=== PATIENT | male | born 1955 | race Caucasian/White ===

== ENCOUNTER → 2019-07-15 09:37 | Outpatient (BNVA) | payer MEDICARE, MEDICAID, SELFPAY | PROVIDERS: Family Provider Nurse Practitioner Family; PCP Nurse Practitioner Family; Visit Provider Specialist | DX: Q78.0 Osteogenesis imperfecta (principal); M48.062 Spinal stenosis, lumbar region with neurogenic claudication | CPT/HCPCS: 62370; 99213 ==

== ENCOUNTER → 2019-08-19 09:02 | Outpatient (BNVA) | payer MEDICARE, MEDICAID, SELFPAY | PROVIDERS: Family Provider Nurse Practitioner Family; Visit Provider Nurse Practitioner | DX: F33.2 Major depressive disorder, recurrent severe without psychotic features (principal); F34.1 Dysthymic disorder; F43.12 Post-traumatic stress disorder, chronic; M48.061 Spinal stenosis, lumbar region without neurogenic claudication; M48.062 Spinal stenosis, lumbar region with neurogenic claudication; R29.90 Unspecified symptoms and signs involving the nervous system; F17.210 Nicotine dependence, cigarettes, uncomplicated | CPT/HCPCS: 62370; 99213 ==

== ENCOUNTER → 2019-09-28 10:08 | Outpatient (BNVA) | payer MEDICARE, MEDICAID, SELFPAY | PROVIDERS: PCP Family Medicine; Visit Provider Specialist | DX: M48.061 Spinal stenosis, lumbar region without neurogenic claudication (principal); Q78.0 Osteogenesis imperfecta; F17.210 Nicotine dependence, cigarettes, uncomplicated | CPT/HCPCS: 62370; 99213 ==

== ENCOUNTER 2019-10-07 09:29 | Outpatient (CLI) | payer MEDICARE, MEDICAID, SELFPAY ==
--- NOTE | 2019-10-07 09:40 | USCV_ITS ---
Chan Dunlap Age: 64 Gender: M : 1955 Exam Date: 10/07/2019 09:53 Ordering Phys: Romeo Bills MD Technologist: Brea Donato Exam Location: [facility] Indication: AI BP: / HR: 50 Rhythm: Sinus Technical Quality: Adequate MEASUREMENTS (Male / Female) Normal Values 2D ECHO LV Diastolic Diameter PLAX 4.4 cm 4.2 - 5.9 / 3.9 - 5.3 cm LV Systolic Diameter PLAX 3.5 cm LV Chamber Size 3.3 cm IVS Diastolic Thickness 1.1 cm 0.6 - 1.0 / 0.6 - 0.9 cm IVS Systolic Thickness 1.5 cm LVPW Diastolic Thickness 1.0 cm 0.6 - 1.0 / 0.6 - 0.9 cm LVPW Systolic Thickness 1.3 cm RV Chamber Size 3.4 cm LVOT Diameter 2.5 cm LV Ejection Fraction 2D Teich 40.6 % LV Ejection Fraction MOD 2C 73.2 % LV Ejection Fraction 2C AL 72.8 % LA Diameter 3.9 cm LA Width 3.3 cm LA Height 4.7 cm RA Width 4.7 cm RA Height 3.8 cm Aorta at Sinotubular Diameter 3.1 cm M-MODE LV Diastolic Diameter MM 4.2 cm 4.2 - 5.9 / 3.9 - 5.3 cm LV Systolic Diameter MM 3.0 cm LV Ejection Fraction MM Teich 56.9 % IVS Diastolic Thickness MM 1.1 cm 0.6 - 1.0 / 0.6 - 0.9 cm IVS Systolic Thickness MM 1.6 cm LVPW Diastolic Thickness MM 1.5 cm 0.6 - 1.0 / 0.6 - 0.9 cm LVPW Systolic Thickness MM 1.9 cm RV Diastolic Diameter MM 1.6 cm Aortic Annulus Diameter 4.6 cm LA Ao Ratio MM 0.8 MV E Point Septal Separation 0.7 cm DOPPLER AV Peak Velocity 186.0 cm/s LVOT Peak Velocity 94.0 cm/s AV Area Cont Eq vti 2.4 cm squared AV Area Cont Eq pk 2.4 cm squared MV Area PHT 2.4 cm squared Mitral E to A Ratio 1.6 MV E' Velocity 10.0 cm/s Mitral E to MV E' Ratio 11.6 Mitral E to LV E' Lateral Ratio 10.9 Mitral E to LV E' Septal Ratio 12.5 TR Peak Velocity 184.8 cm/s TR Peak Gradient 13.7 mmHg TR Mean Velocity 129.9 cm/s TR Mean Gradient 7.6 mmHg TR Velocity Time Integral 48.7 cm TV Peak E Velocity 70.0 cm/s Right Atrial Pressure 3.0 mmHg Pulmonary Artery Systolic Pressu 16.7 mmHg PV Peak Velocity 55.0 cm/s RV Acceleration Time 0.2 s RV Ejection Time 0.4 s RV AcT/ET 0.5 FINDINGS Left Ventricle Normal left ventricular cavity size. Normal left ventricular wall thickness. Normal left ventricular systolic function. Left ventricular ejection fraction is estimated at 70 %. No regional wall motion abnormalities. Normal diastolic function. Right Ventricle Normal right ventricular size and systolic function. Right ventricular systolic pressure 16.7 mmHg. Right Atrium Right atrium not well visualized. Left Atrium Moderately increased left atrial size. Mitral Valve Structurally normal mitral valve. No mitral valve stenosis. No significant mitral valve regurgitation. Aortic Valve Aortic valve not well visualized. No aortic valve stenosis. Moderate to severe aortic valve regurgitation. Tricuspid Valve Tricuspid valve not well visualized. Pulmonic Valve Pulmonic valve not well visualized. Mild pulmonary valve regurgitation. Pericardium No pericardial effusion. Aorta Dilated aortic root measured at 40 mm and ascending aorta measured at 36 mm anteroposteriorly. CONCLUSIONS 1. Normal left ventricular cavity size and systolic function. Left ventricular ejection fraction is estimated at 70 %. No regional wall motion abnormalities. Normal diastolic function. 2. Normal right ventricular size and systolic function. 3. Moderately increased left atrial size. 4. Moderate to severe aortic valve regurgitation. 5. Compared to echocardiogram dated 01/28/2019, there may not have been any significant change. Antonina Paul MD (Electronically Signed) Final Date: 07 October 2019 16:10 S
== END 2019-10-07 09:30 | disposition home or self-care (01) ==
PROVIDERS: Family Provider Family Medicine; PCP Family Medicine; Visit Provider Internal Medicine Cardiovascular Disease
DX: I35.1 Nonrheumatic aortic (valve) insufficiency (principal)
CPT/HCPCS: 93306

== ENCOUNTER → 2019-10-12 08:23 | Outpatient (BNVA) | payer MEDICARE, MEDICAID, SELFPAY | PROVIDERS: Family Provider Family Medicine; PCP Family Medicine; Visit Provider Nurse Practitioner | DX: F33.2 Major depressive disorder, recurrent severe without psychotic features (principal); F34.1 Dysthymic disorder; F43.12 Post-traumatic stress disorder, chronic | CPT/HCPCS: 99213 ==

== ENCOUNTER → 2019-11-04 09:30 | Outpatient (BNVA) | payer MEDICARE, MEDICAID, SELFPAY | PROVIDERS: Family Provider Family Medicine; PCP Family Medicine; Visit Provider Specialist | DX: M48.062 Spinal stenosis, lumbar region with neurogenic claudication (principal); Q78.0 Osteogenesis imperfecta; F33.2 Major depressive disorder, recurrent severe without psychotic features; F17.210 Nicotine dependence, cigarettes, uncomplicated | CPT/HCPCS: 62370; 99213 ==

== ENCOUNTER → 2019-12-09 10:44 | Outpatient (BNVA) | payer MEDICARE, MEDICAID, SELFPAY | PROVIDERS: Family Provider Family Medicine; PCP Family Medicine; Visit Provider Specialist | DX: Q78.0 Osteogenesis imperfecta (principal); M48.062 Spinal stenosis, lumbar region with neurogenic claudication; M79.89 Other specified soft tissue disorders; L03.90 Cellulitis, unspecified | CPT/HCPCS: 62370; 99213 ==

== ENCOUNTER → 2020-01-13 09:40 | Outpatient (BNVA) | payer MEDICARE, MEDICAID, SELFPAY | PROVIDERS: Family Provider Family Medicine; PCP Family Medicine; Visit Provider Specialist | DX: Q78.0 Osteogenesis imperfecta (principal); M48.061 Spinal stenosis, lumbar region without neurogenic claudication; F33.2 Major depressive disorder, recurrent severe without psychotic features; M48.062 Spinal stenosis, lumbar region with neurogenic claudication | CPT/HCPCS: 99213 ==

== ENCOUNTER → 2020-02-17 10:29 | Outpatient (BNVA) | payer MEDICARE, MEDICAID, SELFPAY | PROVIDERS: Family Provider Family Medicine; PCP Family Medicine; Visit Provider Specialist | DX: Q78.0 Osteogenesis imperfecta (principal); M48.062 Spinal stenosis, lumbar region with neurogenic claudication; R29.90 Unspecified symptoms and signs involving the nervous system; F33.2 Major depressive disorder, recurrent severe without psychotic features | CPT/HCPCS: 62370; 99213 ==

== ENCOUNTER → 2020-03-23 09:51 | Outpatient (BNVA) | payer MEDICARE, MEDICAID, SELFPAY | PROVIDERS: Family Provider Family Medicine; PCP Family Medicine; Visit Provider Specialist | DX: M48.062 Spinal stenosis, lumbar region with neurogenic claudication (principal); F34.1 Dysthymic disorder; Q78.0 Osteogenesis imperfecta; F17.210 Nicotine dependence, cigarettes, uncomplicated | CPT/HCPCS: 62370; 99213 ==

== ENCOUNTER → 2020-04-13 11:59 | Outpatient (BNVA) | payer MEDICARE, MEDICAID, SELFPAY | PROVIDERS: Family Provider Family Medicine; PCP Family Medicine; Visit Provider Specialist | DX: M48.062 Spinal stenosis, lumbar region with neurogenic claudication (principal); Q78.0 Osteogenesis imperfecta; Z79.899 Other long term (current) drug therapy; F17.210 Nicotine dependence, cigarettes, uncomplicated | CPT/HCPCS: 62370; 99213 ==

== ENCOUNTER → 2020-05-23 09:36 | Outpatient (BNVA) | payer MEDICARE, MEDICAID, SELFPAY | PROVIDERS: Family Provider Family Medicine; PCP Family Medicine; Visit Provider Specialist | DX: M48.062 Spinal stenosis, lumbar region with neurogenic claudication (principal); Q78.0 Osteogenesis imperfecta | CPT/HCPCS: 62370; 99213 ==

== ENCOUNTER → 2020-06-29 12:18 | Outpatient (BNVA) | payer MEDICARE, MEDICAID, SELFPAY | PROVIDERS: Family Provider Family Medicine; PCP Family Medicine; Visit Provider Specialist | DX: Q78.0 Osteogenesis imperfecta (principal); M46.96 Unspecified inflammatory spondylopathy, lumbar region; F33.2 Major depressive disorder, recurrent severe without psychotic features; M48.062 Spinal stenosis, lumbar region with neurogenic claudication; F17.210 Nicotine dependence, cigarettes, uncomplicated | CPT/HCPCS: 62370; 99213 ==

== ENCOUNTER → 2020-08-03 10:02 | Outpatient (BNVA) | payer MEDICARE, MEDICAID, SELFPAY | PROVIDERS: Family Provider Family Medicine; PCP Family Medicine; Visit Provider Specialist | DX: M48.062 Spinal stenosis, lumbar region with neurogenic claudication (principal); Q78.0 Osteogenesis imperfecta; F43.12 Post-traumatic stress disorder, chronic; F33.2 Major depressive disorder, recurrent severe without psychotic features; F17.210 Nicotine dependence, cigarettes, uncomplicated | CPT/HCPCS: 62370; 99213 ==

== ENCOUNTER → 2020-09-07 10:01 | Outpatient (BNVA) | payer MEDICARE, MEDICAID, SELFPAY | PROVIDERS: Family Provider Family Medicine; PCP Family Medicine; Visit Provider Specialist | DX: M48.062 Spinal stenosis, lumbar region with neurogenic claudication (principal); F17.210 Nicotine dependence, cigarettes, uncomplicated; Z96.89 Presence of other specified functional implants | CPT/HCPCS: 62370; 99213 ==

== ENCOUNTER → 2020-10-25 10:05 | Outpatient (BNVA) | payer MEDICARE, MEDICAID, SELFPAY | PROVIDERS: Family Provider Family Medicine; PCP Family Medicine; Visit Provider Specialist | DX: M48.062 Spinal stenosis, lumbar region with neurogenic claudication (principal); Z96.89 Presence of other specified functional implants; F17.210 Nicotine dependence, cigarettes, uncomplicated | CPT/HCPCS: 62370; 99213 ==

== ENCOUNTER → 2020-12-07 10:59 | Outpatient (BNVA) | payer MEDICARE, MEDICAID, SELFPAY | PROVIDERS: Family Provider Family Medicine; PCP Family Medicine; Visit Provider Specialist | DX: M48.062 Spinal stenosis, lumbar region with neurogenic claudication (principal); M54.6 Pain in thoracic spine; G89.29 Other chronic pain; Q78.0 Osteogenesis imperfecta; Z96.89 Presence of other specified functional implants; F17.210 Nicotine dependence, cigarettes, uncomplicated | CPT/HCPCS: 62370; 99214 ==

== ENCOUNTER 2020-12-18 14:39 | Outpatient (CLI) | payer MEDICARE, MEDICAID, SELFPAY ==
--- NOTE | 2020-12-18 15:30 | CT_ITS ---
WS: [id number] CT LUMBAR SPINE, noncontrast. HISTORY: M54.6 - Pain in thoracic spine TECHNIQUE: Contiguous 2.5 mm axial imaging are performed. Sagittal and coronal reformats are submitte d and reviewed. All CT scans at [facility] use at least one of these dose optimization te chniques: automated exposure control; mA and/or kV adjustment per patient size (includes targeted exa ms where dose is matched to clinical indication); or iterative reconstruction. IV contrast: None DLP: 1463.78 mGycm COMPARISON: MRI lumbar spine 04/24/2006 . Posterior alignment is normal. Severe diffuse osteopenia with loss of the normal trabecular pattern. Mild endplate concavity involving the superior endplates of L1. Concave deformities are mild at L4 an d L5 involving the superior and inferior endplates. There is a more significant biconcave fracture in volving L2 without retropulsion. These fractures are new since 2005. No retropulsion. L1-2: Mild annular disc bulging. No stenosis. L2-3: Very mild annular disc bulging and osteophytic ridging. Mild facet joint arthritis. There is ve ry mild narrowing of the subarticular recess. No significant stenosis. L3-4: Diffuse annular disc bulging with osteophytic ridging. Mild bilateral facet joint arthritis. Mi ld central and subarticular recess narrowing. L4-5: Mild annular disc bulging with moderate facet joint arthritis encroaching into the foramen. Dayron ateral facet joint arthritis and disc disease causing mild central and bilateral subarticular recess narrowing, greatest on the LEFT. L5-S1: Facet joint arthritis without significant stenosis. Dorsal column stimulator wires and electrodes are noted extending into the upper thoracic region. No sacral fracture identified. Partial fusion across the superior LEFT SI joint. CT/CT lumbar spine wo con* [id number] IMPRESSION: 1. Marked osteopenia. 2. Numerous compression fractures in the lumbar spine most significant at L2. Biconcave fracture with severe narrowing of the central vertebral body. No retr opulsion. 3. Additional mild compression fractures at L1, L3 and L4. Fractures are new s dc 2005 MRI. 4. Mild central and bilateral subarticular recess narrowing at L3-4 and L4-5. Most significant encroachment as on the LEFT at L4-5.
--- NOTE | 2020-12-18 15:45 | CT_ITS ---
WS: [id number] CT THORACIC SPINE HISTORY: M48.062 - Spinal stenosis, lumbar region with neurogenic ... TECHNIQUE: Contiguous 2.5 mm axial images are reviewed to thoracic spine. Images are reformatted in s agittal and coronal planes. All CT scans at [facility] use at least one of these dose opt imization techniques: automated exposure control; mA and/or kV adjustment per patient size (includes targeted exams where dose is matched to clinical indication); or iterative reconstruction. DLP: 962.75 mGycm COMPARISON: MRI 06/13/2006 Severe thoracic kyphosis centered at T7. There is diffuse osteopenia. Severe anterior wedging of T7. Additional mild anterior wedging of T6 and T8. No retropulsion of the vertebral bodies. No acute appe aring fracture. No compromise of the central canal. No focal disc protrusions are identified. Lead wi res and electrodes from the dorsal column stimulator are noted terminating near the T10 vertebral bod y. Paraseptal and centrilobular emphysema. Deformity of the ribs in the RIGHT lateral thorax from old he aled fractures. CT/CT thoracic spin wo con* [id number] IMPRESSION: 1. Severe thoracic kyphosis centered at the T7 vertebral body. 2. Vertebral plana T7 compression fracture. Otherwise mild anterior wedging of T6 and T8. 3. No compromise of the central canal.
== END 2020-12-18 14:40 | disposition home or self-care (01) ==
PROVIDERS: PCP Family Medicine; Visit Provider Specialist
DX: M54.6 Pain in thoracic spine (principal); M48.062 Spinal stenosis, lumbar region with neurogenic claudication; G89.29 Other chronic pain; M40.204 Unspecified kyphosis, thoracic region; S22.060A Wedge compression fracture of T7-T8 vertebra, initial encounter for closed fracture; S32.020A Wedge compression fracture of second lumbar vertebra, initial encounter for closed fracture; M85.88 Other specified disorders of bone density and structure, other site; S32.010A Wedge compression fracture of first lumbar vertebra, initial encounter for closed fracture; S32.030A Wedge compression fracture of third lumbar vertebra, initial encounter for closed fracture; S32.040A Wedge compression fracture of fourth lumbar vertebra, initial encounter for closed fracture; X58.XXXA Exposure to other specified factors, initial encounter
CPT/HCPCS: 72128; 72131

== ENCOUNTER → 2021-01-25 10:14 | Outpatient (BNVA) | payer MEDICARE, MEDICAID, SELFPAY | PROVIDERS: PCP Family Medicine; Visit Provider Specialist | DX: Q78.0 Osteogenesis imperfecta (principal); S22.000A Wedge compression fracture of unspecified thoracic vertebra, initial encounter for closed fracture; S32.000A Wedge compression fracture of unspecified lumbar vertebra, initial encounter for closed fracture; G89.29 Other chronic pain; Y93.9 Activity, unspecified; Z96.89 Presence of other specified functional implants; F17.210 Nicotine dependence, cigarettes, uncomplicated | CPT/HCPCS: 62370; 99213; 99214 ==

== ENCOUNTER → 2021-03-15 09:38 | Outpatient (BNVA) | payer MEDICARE, MEDICAID, SELFPAY | PROVIDERS: PCP Family Medicine; Visit Provider Specialist | DX: M54.6 Pain in thoracic spine (principal); G89.29 Other chronic pain; Z96.89 Presence of other specified functional implants; S32.000A Wedge compression fracture of unspecified lumbar vertebra, initial encounter for closed fracture; Y93.9 Activity, unspecified; M48.061 Spinal stenosis, lumbar region without neurogenic claudication; F17.200 Nicotine dependence, unspecified, uncomplicated | CPT/HCPCS: 62370; 99213; 99214 ==

== ENCOUNTER → 2021-05-07 10:03 | Outpatient (BNVA) | payer MEDICARE, MEDICAID, SELFPAY | PROVIDERS: PCP Family Medicine; Visit Provider Specialist | DX: M54.6 Pain in thoracic spine (principal); G89.29 Other chronic pain; M48.061 Spinal stenosis, lumbar region without neurogenic claudication; F33.2 Major depressive disorder, recurrent severe without psychotic features; Z96.89 Presence of other specified functional implants; F17.200 Nicotine dependence, unspecified, uncomplicated | CPT/HCPCS: 62370; 99214 ==

== ENCOUNTER → 2021-05-24 10:01 | Outpatient (BNVA) | payer MEDICARE, MEDICAID, SELFPAY | PROVIDERS: PCP Family Medicine; Visit Provider Specialist | DX: M48.061 Spinal stenosis, lumbar region without neurogenic claudication (principal); Z96.89 Presence of other specified functional implants | CPT/HCPCS: 62367 ==

== ENCOUNTER → 2021-06-14 11:19 | Outpatient (BNVA) | payer MEDICARE, MEDICAID, SELFPAY | PROVIDERS: PCP Family Medicine; Visit Provider Specialist | DX: M48.062 Spinal stenosis, lumbar region with neurogenic claudication (principal) | CPT/HCPCS: 62367 ==

== ENCOUNTER → 2021-06-28 10:59 | Outpatient (BNVA) | payer MEDICARE, MEDICAID, SELFPAY | PROVIDERS: PCP Family Medicine; Visit Provider Specialist | DX: M48.062 Spinal stenosis, lumbar region with neurogenic claudication (principal); Z96.89 Presence of other specified functional implants | CPT/HCPCS: 62367 ==

== ENCOUNTER → 2021-07-13 09:23 | Outpatient (BNVA) | payer MEDICARE, MEDICAID, SELFPAY | PROVIDERS: PCP Family Medicine; Visit Provider Specialist | DX: M48.062 Spinal stenosis, lumbar region with neurogenic claudication (principal); M54.6 Pain in thoracic spine; G89.29 Other chronic pain; Z96.89 Presence of other specified functional implants | CPT/HCPCS: 62370; 99213; 99214 ==

== ENCOUNTER → 2021-09-13 10:54 | Outpatient (BNVA) | payer MEDICARE, MEDICAID, SELFPAY | PROVIDERS: PCP Family Medicine; Visit Provider Specialist | DX: M54.6 Pain in thoracic spine (principal); G89.29 Other chronic pain; M34.9 Systemic sclerosis, unspecified; Z87.891 Personal history of nicotine dependence | CPT/HCPCS: 62367; 99213; 99214 ==

== ENCOUNTER → 2021-09-26 13:31 | Outpatient (BNVA) | payer MEDICARE, MEDICAID, SELFPAY | PROVIDERS: PCP Family Medicine; Visit Provider Specialist | DX: M48.061 Spinal stenosis, lumbar region without neurogenic claudication (principal); F17.210 Nicotine dependence, cigarettes, uncomplicated; Z96.89 Presence of other specified functional implants | CPT/HCPCS: 62370; 99213 ==

== ENCOUNTER → 2021-10-09 13:16 | Outpatient (BNVA) | payer MEDICARE, MEDICAID, SELFPAY | PROVIDERS: PCP Family Medicine; Visit Provider Specialist | DX: Z96.89 Presence of other specified functional implants (principal); Q78.0 Osteogenesis imperfecta; M48.061 Spinal stenosis, lumbar region without neurogenic claudication; S22.000D Wedge compression fracture of unspecified thoracic vertebra, subsequent encounter for fracture with routine healing; F17.210 Nicotine dependence, cigarettes, uncomplicated | CPT/HCPCS: 62368; 99213; 99214 ==

== ENCOUNTER → 2021-10-29 09:24 | Outpatient (BNVA) | payer MEDICARE, MEDICAID, SELFPAY | PROVIDERS: PCP Family Medicine; Visit Provider Specialist | DX: Q78.0 Osteogenesis imperfecta (principal); M48.062 Spinal stenosis, lumbar region with neurogenic claudication; S22.000A Wedge compression fracture of unspecified thoracic vertebra, initial encounter for closed fracture; Z96.89 Presence of other specified functional implants; Z79.891 Long term (current) use of opiate analgesic; F17.210 Nicotine dependence, cigarettes, uncomplicated | CPT/HCPCS: 99214 ==

== ENCOUNTER 2021-10-31 15:02 | Emergency (ER) | payer MEDICARE, MEDICAID, SELFPAY ==
[2021-10-31] VITALS (9 sets, daily range): BP systolic 138–161; BP diastolic 60–86; PULSE 61–78; RESP 14–20; TEMP 37.4–37.6; O2SAT 90–98
--- NOTE | 2021-10-31 15:39 | W.ED.ABDPA2 ---
Documented by User: Osbaldo Banks DO 11/01/21 13:05 HPI - Abdominal Pain General: Chief Complaint: Abdominal Pain Stated Complaint: Unable to keep anything down, was on Morphine Time Seen by Provider: 10/31/21 15:17 Source: patient Mode of arrival: ambulatory Limitations: no limitations History of Present Illness: MD elicited complaint: abdominal pain Onset (ago): day(s) Pain Consistency: constant Severity: severe Quality: cramping Exacerbating factors: nothing Relieving factors: nothing Associated Symptoms: Reports GI cramping, nausea and poor appetite; Denies anorexia, belching, change in bowel habits, change in stool character, chills, coffee ground emesis, constipation, diarrhea, dyspepsia, dysuria, excessive flatus, fever(s), heartburn, hematochezia, hematuria, hematemesis, fecal incontinence, loose stools, melena, syncope and vomiting Review of Systems Const: Reports: body aches, change in appetite, fatigue and malaise; Denies: fever(s) or chills ENMT: Denies: throat pain, ear or mastoid pain, nasal discharge or nasal congestion Card: Denies: chest pain or syncope Resp: Denies: dyspnea, productive cough or non-productive cough GI: Reports: abdominal pain, nausea and GI cramping; Denies: vomiting, hematemesis, coffee ground emesis, heartburn, diarrhea, constipation, belching, excessive flatus, fecal incontinence, change in bowel habits, change in stool character, hematochezia or melena : Denies: dysuria or hematuria Skin/Breast: Denies: rash or pruritus PFSH ED PFSH: Medical History Dysthymic disorder Major depressive disorder, recurrent severe without psychotic features Osteogenesis imperfecta Post-traumatic stress disorder, chronic Surgical History Status post insertion of intrathecal pump Family History Denies family history of Diabetes CAD (coronary artery disease) Cancer Hypertension Stroke Social History Smoking and tobacco status: current every day smoker (1PPD) cigarettes Packs smoked per day: 1 Smoking risk assessment/counseling performed?: Yes Tobacco counseling given: counseling >3 minutes Alcohol intake: current Alcohol intake frequency: holidays/special occasions only History of recent travel: No Physical Exam Const: COMMON NORMALS: no acute distress GENERAL APPEARANCE: cooperative and comfortable ORIENTATION/CONSCIOUSNESS: Yes awake, Yes oriented to person, Yes oriented to place and Yes oriented to time HENMT: COMMON NORMALS: normocephalic, atraumatic and hearing grossly normal bilaterally HEAD & SCALP: normocephalic and atraumatic Neck/C-Spine: COMMON NORMALS: no JVD Resp: COMMON NORMALS: normal respiratory effort, No retractions, No use of accessory muscles and clear to auscultation bilaterally AUSCULTATION: clear to auscultation bilaterally Cardio: COMMON NORMALS: no JVD, regular rate, regular rhythm and No murmurs present (Cardio) RATE: regular rate RHYTHM: regular rhythm GI: COMMON NORMALS: No hepatosplenomegaly present AUSCULTATION: Yes normoactive bowel sounds PALPATION: Yes Tenderness to palpation present (GI) (Epigastric), No Guarding due to palpation present (GI) and Yes No hepatosplenomegaly present Extremity: COMMON NORMALS: normal to inspection, capillary refill normal, no clubbing, cyanosis or edema, no calf tenderness and no pedal edema Neuro: SENSORIUM/ORIENTATION: Yes oriented to person, Yes oriented to place and Yes oriented to time Skin: COMMON NORMALS: no rashes or lesions noted GENERAL SKIN EXAM: no rashes or lesions noted Course Vital Signs: Vital signs: Vital Signs Temperature 99.3 F 10/31/21 21:13 Pulse Rate 71 10/31/21 21:13 Respiratory Rate 18 10/31/21 21:13 Blood Pressure 161/61 10/31/21 21:13 Pulse Oximetry 91 10/31/21 21:13 MDM - Abdominal Pain Medical Decision Making Care signed out to Dr. Sawyer at change of shift. See final notes for diagnosis and disposition. Patient presents here with chronic pain he had had abdominal and chest pain while he is here his blood work including cardiac enzymes and CT abdomen are normal I spoke to his physician Dr. Mathis as well he stable for discharge he is to take his hydrocodone at home we will prescribe him Zofran as well he is to follow-up with her in 2 to 4 days and return if worsening he understands and agrees to plan. Lab Data : 10/31/21 16:50 10/31/21 16:50 Labs/Radiology: Radiology Impressions Abdomen/Pelvis CT 10/31/21 17:03 IMPRESSION: 1. Negative for focal acute inflammatory process in the abdomen or pelvis. 2. Bibasilar atelectasis versus minimal infiltrate. 3. Emphysematous changes. 4. Subcentimeter hepatic cysts. 5. Right kidney cyst, negative for follow-up advised. 6. Spinal stimulator. 7. Constipation. 8. Diverticulosis without diverticulitis. 9. Minimal cholelithiasis. 10. Several chronic compression fractures without retropulsion of bony fragments in the spine. 11. Chronic right pelvic fractures. Chest X-Ray 10/31/21 19:07 IMPRESSION: Low lung volumes with mild pulmonary vascular congestion but no overt edema or consolidation. Laboratory Results WBC 8.3 10^3/uL (4.0-10.0) 10/31/21 16:50 RBC 4.54 10^6/uL (4.1-5.3) 10/31/21 16:50 Hgb 14.2 g/dL (11.7-16.6) 10/31/21 16:50 Hct 43.3 % (42.0-52.0) 10/31/21 16:50 MCV 95.4 fl (80-94) H 10/31/21 16:50 MCH 31.3 pg (28.0-34.0) 10/31/21 16:50 MCHC 32.8 g/dL (30.0-36.0) 10/31/21 16:50 RDW 14.1 % (12.1-15.1) 10/31/21 16:50 Plt Count 197 10^3/cmm (130-400) 10/31/21 16:50 MPV 9.8 fL (7.4-10.4) 10/31/21 16:50 Neut % (Auto) 79.6 % 10/31/21 16:50 Lymph % (Auto) 15.0 % 10/31/21 16:50 Wilkin % (Auto) 3.7 % 10/31/21 16:50 Eos % (Auto) 0.1 % 10/31/21 16:50 Baso % (Auto) 1.2 % 10/31/21 16:50 Neut # (Auto) 6.63 10^3/uL (1.8-7.7) 10/31/21 16:50 Lymph # (Auto) 1.3 10^3/uL (0.8-4.8) 10/31/21 16:50 Wilkin # (Auto) 0.3 10^3/uL (0.2-0.9) 10/31/21 16:50 Eos # (Auto) 0.0 10^3/uL (0.0-0.8) 10/31/21 16:50 Baso # (Auto) 0.1 10^3/uL (0.0-0.1) 10/31/21 16:50 Nucleated RBC % (auto) 0 % 10/31/21 16:50 Nucleated RBCs # 0.0 /100WBC 10/31/21 16:50 Sodium 145 mmol/L (136-145) 10/31/21 16:50 Potassium 3.8 mmol/L (3.5-5.1) 10/31/21 16:50 Chloride 106 mmol/L (98-107) 10/31/21 16:50 Carbon Dioxide 26 mmol/L (22-29) 10/31/21 16:50 Anion Gap 16.8 (5-19) 10/31/21 16:50 BUN 9 mg/dL (8-23) 10/31/21 16:50 Creatinine 0.8 mg/dL (0.7-1.2) 10/31/21 16:50 GFR Calculation 97.0 mL/min (90-130) 10/31/21 16:50 Glucose 120 mg/dL (65-115) H 10/31/21 16:50 Calculated Osmolality 300 mOsm/kg (285-295) H 10/31/21 16:50 Lactic Acid 1.3 mmol/L (0.5-2.2) 10/31/21 16:55 Calcium 9.6 mg/dL (8.5-10.5) 10/31/21 16:50 Total Bilirubin 0.4 mg/dL (0.15-1.2) 10/31/21 16:50 AST 18 U/L (0-40) 10/31/21 16:50 ALT 13 U/L (0-41) 10/31/21 16:50 Alkaline Phosphatase 61 IU/L (40-130) 10/31/21 16:50 Troponin T Baseline 15 ng/L (0-15) 10/31/21 16:50 Troponin T 120 Minute 16.56 ng/L (0-15) H 10/31/21 19:24 Delta Troponin T 1.56 ABS# (0-10) 10/31/21 19:24 Total Protein 7.7 g/dL (6.6-8.7) 10/31/21 16:50 Albumin 4.5 g/dL (3.5-5.2) 10/31/21 16:50 Globulin 3.2 g/dL (1.3-4.6) 10/31/21 16:50 Lipase 30 U/L (13-60) 10/31/21 16:50 Discharge Plan Discharge Patient Disposition: Home Clinical Impression: Abdominal pain Condition: Stable Prescriptions: New ondansetron 4 mg tablet,disintegrating 4 mg PO Q6H PRN (Reason: nausea and vomiting) Qty: 14 0RF No Action Cumin 1 tab as directed DAILY 0RF multivitamin Tablet 1 tab PO QAM 0RF Senna Plus 8.6-50 mg capsule 3 tab-cap PO BID 0RF calcium carbonate [Calcium 600] 600 mg calcium (1,500 mg) tablet 600 mg PO DAILY 0RF ferrous sulfate [FeroSul] 325 mg (65 mg iron) tablet 325 mg PO DAILY 0RF magnesium 200 mg tablet 200 mg PO DAILY 0RF saw palmetto 500 mg capsule 500 mg PO DAILY 0RF bupropion HCl [Wellbutrin XL] 300 mg tablet extended release 24 hr 300 mg PO QAM Qty: 30 1RF albuterol sulfate [Ventolin HFA] 90 mcg/actuation HFA aerosol inhaler 1 inh inhalation Q4H PRN (Reason: shortness of breath or wheezing) Qty: 6.7 5RF baclofen 10 mg tablet 10 mg PO QID Qty: 360 3RF pregabalin [Lyrica] 50 mg capsule 50 mg PO TID Qty: 90 5RF alendronate 70 mg tablet See Rx Instructions .ROUTE .COMPLEX Qty: 4 3RF Dose Instruction: take one tablet by mouth weekly. Rx Instructions: take one tablet by mouth weekly on Mondays albuterol sulfate 2.5 mg /3 mL (0.083 %) Solution For Nebulization 2.5 mg INHALATION Q6H PRN (Reason: Shortness Of Breath) 0RF hydroxyzine HCl 50 mg tablet 50 mg PO BEDTIME 0RF hydrocodone-acetaminophen 10-325 mg tablet 1 tab PO Q6H PRN (Reason: Pain) 0RF Rx Instructions: Do not fill until 12/27/2021 Discharge Orders: Discharge ED (Routine); Ordered 10/31/21 Ordered By: Jcarlos Sawyer Referrals: Radha Bright MD [Primary Care Provider] - Discharge Diet: Advance as tolerated Discharge Activity: Resume usual activity Patient Instructions: Abdominal Pain (ED) Coding Level of Care Code ED Fixer Supervisor for Chg Fwd Documented by User: Jcarlos Sawyer MD 10/31/21 21:28 HPI - Abdominal Pain General: Chief Complaint: Abdominal Pain Stated Complaint: Unable to keep anything down, was on Morphine Time Seen by Provider: 10/31/21 15:17 History of Present Illness: . [facility] ED PFSH: Medical History Dysthymic disorder Major depressive disorder, recurrent severe without psychotic features Osteogenesis imperfecta Post-traumatic stress disorder, chronic Surgical History Status post insertion of intrathecal pump Family History Denies family history of Diabetes CAD (coronary artery disease) Cancer Hypertension Stroke Social History Smoking and tobacco status: current every day smoker (1PPD) cigarettes Packs smoked per day: 1 Smoking risk assessment/counseling performed?: Yes Tobacco counseling given: counseling >3 minutes Alcohol intake: current Alcohol intake frequency: holidays/special occasions only History of recent travel: No Course Vital Signs: Vital signs: Vital Signs Temperature 99.3 F 10/31/21 21:13 Pulse Rate 71 10/31/21 21:13 Respiratory Rate 18 10/31/21 21:13 Blood Pressure 161/61 10/31/21 21:13 Pulse Oximetry 91 10/31/21 21:13 MDM - Abdominal Pain Medical Decision Making Patient presents here with chronic pain he had had abdominal and chest pain while he is here his blood work including cardiac enzymes and CT abdomen are normal I spoke to his physician Dr. Mathis as well he stable for discharge he is to take his hydrocodone at home we will prescribe him Zofran as well he is to follow-up with her in 2 to 4 days and return if worsening he understands and agrees to plan. Lab Data : 10/31/21 16:50 10/31/21 16:50 Labs/Radiology: Radiology Impressions Abdomen/Pelvis CT 10/31/21 17:03 IMPRESSION: 1. Negative for focal acute inflammatory process in the abdomen or pelvis. 2. Bibasilar atelectasis versus minimal infiltrate. 3. Emphysematous changes. 4. Subcentimeter hepatic cysts. 5. Right kidney cyst, negative for follow-up advised. 6. Spinal stimulator. 7. Constipation. 8. Diverticulosis without diverticulitis. 9. Minimal cholelithiasis. 10. Several chronic compression fractures without retropulsion of bony fragments in the spine. 11. Chronic right pelvic fractures. Chest X-Ray 10/31/21 19:07 IMPRESSION: Low lung volumes with mild pulmonary vascular congestion but no overt edema or consolidation. Laboratory Results WBC 8.3 10^3/uL (4.0-10.0) 10/31/21 16:50 RBC 4.54 10^6/uL (4.1-5.3) 10/31/21 16:50 Hgb 14.2 g/dL (11.7-16.6) 10/31/21 16:50 Hct 43.3 % (42.0-52.0) 10/31/21 16:50 MCV 95.4 fl (80-94) H 10/31/21 16:50 MCH 31.3 pg (28.0-34.0) 10/31/21 16:50 MCHC 32.8 g/dL (30.0-36.0) 10/31/21 16:50 RDW 14.1 % (12.1-15.1) 10/31/21 16:50 Plt Count 197 10^3/cmm (130-400) 10/31/21 16:50 MPV 9.8 fL (7.4-10.4) 10/31/21 16:50 Neut % (Auto) 79.6 % 10/31/21 16:50 Lymph % (Auto) 15.0 % 10/31/21 16:50 Wilkin % (Auto) 3.7 % 10/31/21 16:50 Eos % (Auto) 0.1 % 10/31/21 16:50 Baso % (Auto) 1.2 % 10/31/21 16:50 Neut # (Auto) 6.63 10^3/uL (1.8-7.7) 10/31/21 16:50 Lymph # (Auto) 1.3 10^3/uL (0.8-4.8) 10/31/21 16:50 Wilkin # (Auto) 0.3 10^3/uL (0.2-0.9) 10/31/21 16:50 Eos # (Auto) 0.0 10^3/uL (0.0-0.8) 10/31/21 16:50 Baso # (Auto) 0.1 10^3/uL (0.0-0.1) 10/31/21 16:50 Nucleated RBC % (auto) 0 % 10/31/21 16:50 Nucleated RBCs # 0.0 /100WBC 10/31/21 16:50 Sodium 145 mmol/L (136-145) 10/31/21 16:50 Potassium 3.8 mmol/L (3.5-5.1) 10/31/21 16:50 Chloride 106 mmol/L (98-107) 10/31/21 16:50 Carbon Dioxide 26 mmol/L (22-29) 10/31/21 16:50 Anion Gap 16.8 (5-19) 10/31/21 16:50 BUN 9 mg/dL (8-23) 10/31/21 16:50 Creatinine 0.8 mg/dL (0.7-1.2) 10/31/21 16:50 GFR Calculation 97.0 mL/min (90-130) 10/31/21 16:50 Glucose 120 mg/dL (65-115) H 10/31/21 16:50 Calculated Osmolality 300 mOsm/kg (285-295) H 10/31/21 16:50 Lactic Acid 1.3 mmol/L (0.5-2.2) 10/31/21 16:55 Calcium 9.6 mg/dL (8.5-10.5) 10/31/21 16:50 Total Bilirubin 0.4 mg/dL (0.15-1.2) 10/31/21 16:50 AST 18 U/L (0-40) 10/31/21 16:50 ALT 13 U/L (0-41) 10/31/21 16:50 Alkaline Phosphatase 61 IU/L (40-130) 10/31/21 16:50 Troponin T Baseline 15 ng/L (0-15) 10/31/21 16:50 Troponin T 120 Minute 16.56 ng/L (0-15) H 10/31/21 19:24 Delta Troponin T 1.56 ABS# (0-10) 10/31/21 19:24 Total Protein 7.7 g/dL (6.6-8.7) 10/31/21 16:50 Albumin 4.5 g/dL (3.5-5.2) 10/31/21 16:50 Globulin 3.2 g/dL (1.3-4.6) 10/31/21 16:50 Lipase 30 U/L (13-60) 10/31/21 16:50 EKG Data EKG 1: I personally reviewed and interpreted this EKG as follows: EKG interpretation date: 10/31/21 EKG interpretation time: 19:01 Interpretation: nsr hr [address] or t wave abnormalities qrs 100 qtc 420 Discharge Plan Discharge Patient Disposition: Home Clinical Impression: Abdominal pain Condition: Stable Prescriptions: New ondansetron 4 mg tablet,disintegrating 4 mg PO Q6H PRN (Reason: nausea and vomiting) Qty: 14 0RF No Action Cumin 1 tab as directed DAILY 0RF multivitamin Tablet 1 tab PO QAM 0RF Senna Plus 8.6-50 mg capsule 3 tab-cap PO BID 0RF calcium carbonate [Calcium 600] 600 mg calcium (1,500 mg) tablet 600 mg PO DAILY 0RF ferrous sulfate [FeroSul] 325 mg (65 mg iron) tablet 325 mg PO DAILY 0RF magnesium 200 mg tablet 200 mg PO DAILY 0RF saw palmetto 500 mg capsule 500 mg PO DAILY 0RF bupropion HCl [Wellbutrin XL] 300 mg tablet extended release 24 hr 300 mg PO QAM Qty: 30 1RF albuterol sulfate [Ventolin HFA] 90 mcg/actuation HFA aerosol inhaler 1 inh inhalation Q4H PRN (Reason: shortness of breath or wheezing) Qty: 6.7 5RF baclofen 10 mg tablet 10 mg PO QID Qty: 360 3RF pregabalin [Lyrica] 50 mg capsule 50 mg PO TID Qty: 90 5RF alendronate 70 mg tablet See Rx Instructions .ROUTE .COMPLEX Qty: 4 3RF Dose Instruction: take one tablet by mouth weekly. Rx Instructions: take one tablet by mouth weekly on Mondays albuterol sulfate 2.5 mg /3 mL (0.083 %) Solution For Nebulization 2.5 mg INHALATION Q6H PRN (Reason: Shortness Of Breath) 0RF hydroxyzine HCl 50 mg tablet 50 mg PO BEDTIME 0RF hydrocodone-acetaminophen 10-325 mg tablet 1 tab PO Q6H PRN (Reason: Pain) 0RF Rx Instructions: Do not fill until 12/27/2021 Discharge Orders: Discharge ED (Routine); Ordered 10/31/21 Ordered By: Jcarlos Sawyer Referrals: Radha Bright MD [Primary Care Provider] - Discharge Diet: Advance as tolerated Discharge Activity: Resume usual activity Patient Instructions: Abdominal Pain (ED) Coding Level of Care Code ED Fixer Supervisor for Miguel Grier
--- NOTE | 2021-10-31 17:03 | CTR_ITS ---
PROCEDURE INFORMATION: Exam: CT Abdomen And Pelvis With Contrast Exam date and time: 10/31/2021 6:05 PM Age: 66 years old Clinical indication: Abdominal pain; Additional info: Abd pain on the right side, unable to keep any food down x 2 days TECHNIQUE: Imaging protocol: Computed tomography of the abdomen and pelvis with contrast. Radiation optimization: All CT scans at this facility use at least one of these dose optimization techniques: automated exposure control; mA and/or kV adjustment per patient size (includes targeted exams where dose is matched to clinical indication); or iterative reconstruction. Contrast material: OMNIPAQUE 350; Contrast volume: 95 ml; Contrast route: INTRAVENOUS (IV); COMPARISON: CT pelvis wo con [id number] 11/13/2015 9:48 AM RADIATION DOSE METRICS: Total DLP (mGy-cm): 1464.52 FINDINGS: Tubes, catheters and devices: Spinal stimulator. Lungs: Bibasilar atelectasis versus minimal infiltrate. Emphysematous changes. Liver: Subcentimeter hepatic cysts. Gallbladder and bile ducts: Minimal cholelithiasis. Pancreas: Normal. No ductal dilation. Spleen: Normal. No splenomegaly. Adrenal glands: Normal. No mass. Kidneys and ureters: Right kidney cyst, negative for follow-up advised. Stomach and bowel: Constipation. Diverticulosis without diverticulitis. Appendix: No evidence of appendicitis. Intraperitoneal space: Unremarkable. No free air. No significant fluid collection. Arteries: Unremarkable. No abdominal aortic aneurysm. Lymph nodes: Unremarkable. No enlarged lymph nodes. Urinary bladder: Unremarkable as visualized. Reproductive: Unremarkable as visualized. Bones/joints: Several chronic compression fractures without retropulsion of bony fragments in the spine. Chronic right pelvic fractures. Soft tissues: Unremarkable. CT/CT abdomen pelvis w con* [id number] IMPRESSION: 1. Negative for focal acute inflammatory process in the abdomen or pelvis. 2. Bibasilar atelectasis versus minimal infiltrate. 3. Emphysematous changes. 4. Subcentimeter hepatic cysts. 5. Right kidney cyst, negative for follow-up advised. 6. Spinal stimulator. 7. Constipation. 8. Diverticulosis without diverticulitis. 9. Minimal cholelithiasis. 10. Several chronic compression fractures without retropulsion of bony fragments in the spine. 11. Chronic right pelvic fractures.
[2021-10-31 17:05] LABS: Basophils # 0.1 10^3/uL (0.0-0.1); Basophils % 1.2 %; Eosinophils % 0.1 %; Hematocrit 43.3 % (42.0-52.0); Hemoglobin 14.2 g/dL (11.7-16.6); Lymphocytes # 1.3 10^3/uL (0.8-4.8); Mean Corpuscular HGB Conc 32.8 g/dL (30.0-36.0); Mean Corpuscular Hemoglobin 31.3 pg (28.0-34.0); Mean Corpuscular Volume 95.4 fl (80-94); Mean Platelet Volume 9.8 fL (7.4-10.4); Monocytes # 0.3 10^3/uL (0.2-0.9); Monocytes % 3.7 %; Neutrophils # 6.63 10^3/uL (1.8-7.7); Neutrophils % 79.6 %; Nucleated Red Blood Cells % 0 %; Platelet Count 197 10^3/cmm (130-400); Red Blood Count 4.54 10^6/uL (4.1-5.3); Red Cell Distribution Width 14.1 % (12.1-15.1); White Blood Count 8.3 10^3/uL (4.0-10.0)
[2021-10-31] MEDS: morphine 4 mg/mL SDV 1 mL IVP ×2 (17:19→20:55)
[2021-10-31] MEDS: lactated ringers 1,000 ML 999 ML IV (17:19)
[2021-10-31] MEDS: ondansetron 2 mg/ML SDV 2 mL 4 MG IVP (17:20)
[2021-10-31 17:22] LABS: Lactic Sepsis W/Reflex 1.3 mmol/L (0.5-2.2)
[2021-10-31 17:23] LABS: Alanine Aminotransferase 13 U/L (0-41); Albumin Level 4.5 g/dL (3.5-5.2); Alkaline Phosphatase 61 IU/L (40-130); Anion Gap 16.8 (5-19); Aspartate Amino Transferase 18 U/L (0-40); Blood Urea Nitrogen 9 mg/dL (8-23); Calcium 9.6 mg/dL (8.5-10.5); Carbon Dioxide 26 mmol/L (22-29); Chloride 106 mmol/L (98-107); Globulin 3.2 g/dL (1.3-4.6); Glucose 120 mg/dL (65-115); Lipase 30 U/L (13-60); Osmolality Calculated 300 mOsm/kg (285-295); Potassium 3.8 mmol/L (3.5-5.1); Sodium 145 mmol/L (136-145); Total Bilirubin 0.4 mg/dL (0.15-1.2); Total Protein 7.7 g/dL (6.6-8.7)
[2021-10-31] MEDS: iohexol 350 mg/mL 100 mL Btl IV (18:07)
[2021-10-31] MEDS: HYDROmorphone 1 mg/mL INJ 1 mL IVP (18:17)
[2021-10-31] MEDS: ondansetron 4 MG Tablet PO (18:41)
--- NOTE | 2021-10-31 18:58 | ECG_ITS ---
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 Measurements Intervals [place] Rate: 61 P: 39 CA: 124 QRS: 51 QRSD: 100 T: 53 QT: 416 QTc: 422 Interpretive Statements SINUS RHYTHM WITH SINUS ARRHYTHMIA Compared to ECG 11/07/2018 06:11:20 Myocardial infarct finding no longer present Electronically Signed On 11-01-2021 17:00:25 CDT by Bill Barton M.D. [email or web address]/[id number]
--- NOTE | 2021-10-31 19:07 | XRR_ITS ---
PROCEDURE INFORMATION: Exam: XR Chest Exam date and time: 10/31/2021 7:27 PM Age: 66 years old Clinical indication: Pain; Angina pectoris; Additional info: Cp TECHNIQUE: Imaging protocol: XR of the chest. Views: 1 view. COMPARISON: CR Chest 1 [place] [id number] 11/07/2018 1:26 AM FINDINGS: Lungs: Low lung volumes with pleuroparenchymal scarring. Pulmonary vascular congestion without overt edema. No consolidation. Pleural spaces: Unremarkable. No pleural effusion. No pneumothorax. Heart/Mediastinum: Cardiac silhouette upper normal. Bones/joints: Old right rib fractures. Old proximal right humerus fracture with plate and screws. XR/XR chest 1V portable [id number] IMPRESSION: Low lung volumes with mild pulmonary vascular congestion but no overt edema or consolidation.
[2021-10-31 19:32] LABS: Troponin(5th) Baseline 15 ng/L (0-15)
[2021-10-31 19:50] LABS: Troponin 5 2HR 16.56 ng/L (0-15)
[2021-10-31 19:52] LABS: Troponin 5 2HR Delta 1.56 ABS# (0-10)
[2021-10-31] MEDS: lidocaine 2% viscous 15 ML, aluminum-mag hydrox-simethicon 30 ML, sucralfate oral liq 1 GM PO (20:04)
== END 2021-10-31 21:20 | disposition home or self-care (01) ==
PROVIDERS: Emergency Medicine; Family Medicine; Emergency Provider Emergency Medicine; PCP Family Medicine
DX: F11.23 Opioid dependence with withdrawal (principal); R10.9 Unspecified abdominal pain; Z96.89 Presence of other specified functional implants; F17.210 Nicotine dependence, cigarettes, uncomplicated; G89.29 Other chronic pain; Z79.891 Long term (current) use of opiate analgesic
CPT/HCPCS: 36415; 71045; 74177; 80053; 83605; 83690; 84484; 85025; 93005; 96361; 96374; 96375; 96376; 99215; 99284; J1170; J2270; J2405; Q0162; Q9967

== ENCOUNTER 2021-11-04 21:39 | Emergency (ER) | payer MEDICARE, MEDICAID, SELFPAY ==
[2021-11-04 22:30] VITALS: BP 143/62; PULSE 90; RESP 14; TEMP 37.1; O2SAT 97; BMI 26.5
--- NOTE | 2021-11-04 23:08 | W.ED.GENADLT ---
HPI - General Adult General: Chief complaint: General Medical Stated complaint: BACK PAIN Time Seen by Provider: 11/04/21 22:54 History of Present Illness: Patient is a 66-year-old male comes to the ED with worsening chronic pain. Past medical history of osteogenesis imperfecta. He says he is having episodes of increased pain all over. He was seen here in the ED for similar complaint back on October 31 and he was cleared for discharge home. patient has a morphine pump and he thinks that it is not working right. Patient saw Dr. Mathis back on October 31 and she turned off pain pump due to it being at the end of its service and battery depleted. Dr. Mathis is currently in the process of getting patient set up with a surgeon to have pain pump removed. Dr. Mathis has pt on oral prescription of hydrocodone's for pain and he says they are not helping. Denies any other symptoms. Associated symptoms: Deny chest pain, dyspnea, headache(s), nausea, rash, palpitations or vomiting Review of Systems Narrative: Generalized pain all over. Const: Denies: fever(s), chills or fatigue Eyes: Denies: change in vision or eye discomfort ENMT: Denies: throat pain, odynophagia, nasal discharge or nasal congestion Card: Denies: chest pain, palpitations, edema, swelling of feet/ankles, dyspnea on exertion or orthopnea Resp: Denies: dyspnea, productive cough or non-productive cough GI: Denies: abdominal pain, nausea, vomiting, diarrhea, constipation or hematochezia : Denies: flank pain, difficulty urinating, dysuria or hematuria Musc: Denies: neck pain, back pain or extremity swelling Skin/Breast: Denies: rash or new lesions Neuro: Denies: headache(s), numbness in extremities or weakness in extremities PFSH ED PFSH: Medical History Dysthymic disorder Major depressive disorder, recurrent severe without psychotic features Osteogenesis imperfecta Post-traumatic stress disorder, chronic Surgical History Status post insertion of intrathecal pump Family History Denies family history of Diabetes CAD (coronary artery disease) Cancer Hypertension Stroke Social History Smoking and tobacco status: current every day smoker (1PPD) cigarettes Packs smoked per day: 1 Smoking risk assessment/counseling performed?: Yes Tobacco counseling given: counseling >3 minutes Alcohol intake: current Alcohol intake frequency: holidays/special occasions only History of recent travel: No Physical Exam Const: COMMON NORMALS: no acute distress, patient oriented x3 and alert GENERAL APPEARANCE: cooperative HENMT: COMMON NORMALS: normocephalic HEAD & SCALP: normocephalic MOUTH: Normal oral and palatal mucosa present THROAT: posterior oropharynx normal and uvula midline Eye: COMMON NORMALS: Equal, round and reactive pupils present and conjunctivae normal CONJUNCTIVA: Yes conjunctivae normal PUPIL: Yes Equal, round and reactive pupils present Neck/C-Spine: COMMON NORMALS: supple GENERAL: Yes normal visual inspection Resp: COMMON NORMALS: normal respiratory effort, No retractions, No use of accessory muscles and clear to auscultation bilaterally AUSCULTATION: clear to auscultation bilaterally Cardio: COMMON NORMALS: regular rate, regular rhythm, S1 normal heart sound present, S2 normal heart sound present, No gallops present (Cardio), No clicks present (Cardio), No murmurs present (Cardio) and Peripheral pulses 2+ throughout RATE: regular rate RHYTHM: regular rhythm HEART SOUNDS: S1 normal heart sound present and S2 normal heart sound present PERIPHERAL PULSES: Peripheral pulses 2+ throughout GI: COMMON NORMALS: Normal to inspection, nondistended, normoactive bowel sounds present, Soft to palpation, non-tender and no masses PALPATION: Yes Soft to palpation : COMMON NORMALS: Yes no CVA tenderness BLADDER/KIDNEY EXAM: Yes no CVA tenderness Back/Pelvis: COMMON NORMALS: no CVA tenderness Extremity: COMMON NORMALS: normal to inspection Neuro: COMMON NORMALS: patient oriented x3 and moves all extremities SENSORIUM/ORIENTATION: Yes alert Skin: GENERAL SKIN EXAM: dry skin Course Vital Signs: Vital signs: Vital Signs Temperature 98.7 F 11/04/21 22:30 Pulse Rate 90 11/04/21 22:30 Respiratory Rate 18 11/04/21 23:44 Blood Pressure 143/62 11/04/21 22:30 Pulse Oximetry 97 11/04/21 22:30 [facility] - General Adult Medical Decision Making Patient is a 66-year-old male comes to the ED with generalized pain all over. Patient has a history of osteogenesis imperfecta and has morphine pain pump. He just had morphine pump deactivated back on October 31. Dr. Mathis is currently setting patient up with a surgeon who can have pain pump removed. He currently has hydrocodone 10 mg tablets at home to take for pain now since pain pump is stopped. Denies any other symptoms. Vitals are stable and patient appears nontoxic in no acute distress. Rest of exam is benign. Patient was just a little confused on what all was done with his morphine pump by Dr. Mathis on October 31 and that was part of his reason for coming here to the ED tonight. I reviewed Dr. Mathis's note on October 31 and informed patient that his morphine pump was deactivated and he has the p.o. hydrocodone now for pain. Patient understood and I told him to contact Dr. Mathis tomorrow to find out when pain pump will get removed. He was given p.o. pain med dose here in the ED and then was discharged home. Return ED precautions given. Patient understood and agreed with plan. Discharge Plan Discharge Patient Disposition: Home Clinical Impression: Pain Condition: Stable Prescriptions: No Action Cumin 1 tab as directed DAILY 0RF multivitamin Tablet 1 tab PO QAM 0RF Senna Plus 8.6-50 mg capsule 3 tab-cap PO BID 0RF calcium carbonate [Calcium 600] 600 mg calcium (1,500 mg) tablet 600 mg PO DAILY 0RF ferrous sulfate [FeroSul] 325 mg (65 mg iron) tablet 325 mg PO DAILY 0RF magnesium 200 mg tablet 200 mg PO DAILY 0RF saw palmetto 500 mg capsule 500 mg PO DAILY 0RF bupropion HCl [Wellbutrin XL] 300 mg tablet extended release 24 hr 300 mg PO QAM Qty: 30 1RF albuterol sulfate [Ventolin HFA] 90 mcg/actuation HFA aerosol inhaler 1 inh inhalation Q4H PRN (Reason: shortness of breath or wheezing) Qty: 6.7 5RF baclofen 10 mg tablet 10 mg PO QID Qty: 360 3RF pregabalin [Lyrica] 50 mg capsule 50 mg PO TID Qty: 90 5RF alendronate 70 mg tablet See Rx Instructions .ROUTE .COMPLEX Qty: 4 3RF Dose Instruction: take one tablet by mouth weekly. Rx Instructions: take one tablet by mouth weekly on Mondays albuterol sulfate 2.5 mg /3 mL (0.083 %) Solution For Nebulization 2.5 mg INHALATION Q6H PRN (Reason: Shortness Of Breath) 0RF hydroxyzine HCl 50 mg tablet 50 mg PO BEDTIME 0RF hydrocodone-acetaminophen 10-325 mg tablet 1 tab PO Q6H PRN (Reason: Pain) 0RF Rx Instructions: Do not fill until 12/27/2021 ondansetron 4 mg tablet,disintegrating 4 mg PO Q6H PRN (Reason: nausea and vomiting) Qty: 14 0RF Discharge Orders: Discharge ED (Routine); Ordered 11/04/21 Ordered By: Jeremie Seo Referrals: Radha Bright MD [Primary Care Provider] - Discharge Diet: Regular Discharge Activity: Increase activity as tolerated Patient Instructions: Opioid Safety Activity Restrictions/Additional Instructions: Contact Dr. Mathis tomorrow to discuss plan with morphine pump. Continue taking your previously prescribed oral pain meds. Return to the ER or your medical provider if condition worsens. Please read and understand discharge instructions. Thank you for choosing [facility] for your healthcare needs today. Please realize this is an emergency room and that we are providing you with a medical screening exam and this may not be complete and all inclusive of all the testing and or work up that you may need to determine your ailment or severity of your illness. It is very important that you follow up as instructed or that you return to the Emergency Department should you have concerns or if your condition changes or worsens in any way. Coding Level of Care Code ED It Help Desk Associate for Miguel Grier Exam Comprehensive
[2021-11-04 23:44] VITALS: RESP 18
[2021-11-04] MEDS: oxyCODONE-APAP 10-325 mg Tablet 1 TAB PO (23:44)
== END 2021-11-05 00:10 | disposition home or self-care (01) ==
PROVIDERS: Emergency Provider Physician Assistant; PCP Family Medicine
DX: R52 Pain, unspecified (principal); Q78.0 Osteogenesis imperfecta; F17.210 Nicotine dependence, cigarettes, uncomplicated
CPT/HCPCS: 99281

== ENCOUNTER → 2021-11-05 11:46 | Outpatient (BNVA) | payer MEDICARE, MEDICAID, SELFPAY | PROVIDERS: PCP Family Medicine; Visit Provider Specialist | DX: F11.23 Opioid dependence with withdrawal (principal); Z96.89 Presence of other specified functional implants; M54.6 Pain in thoracic spine; G89.29 Other chronic pain; Q78.0 Osteogenesis imperfecta; M48.061 Spinal stenosis, lumbar region without neurogenic claudication; F17.210 Nicotine dependence, cigarettes, uncomplicated | CPT/HCPCS: 99214; 99215 ==

== ENCOUNTER → 2021-11-19 10:20 | Outpatient (BNVA) | payer MEDICARE, MEDICAID, SELFPAY | PROVIDERS: PCP Family Medicine; Visit Provider Specialist | DX: Q78.0 Osteogenesis imperfecta (principal); S52.021S Displaced fracture of olecranon process without intraarticular extension of right ulna, sequela; F11.23 Opioid dependence with withdrawal; S22.000D Wedge compression fracture of unspecified thoracic vertebra, subsequent encounter for fracture with routine healing; Y93.9 Activity, unspecified | CPT/HCPCS: 99214 ==

== ENCOUNTER → 2021-12-26 08:35 | Outpatient (BNVA) | payer MEDICARE, MEDICAID, SELFPAY | PROVIDERS: PCP Family Medicine; Referring Provider Specialist; Visit Provider Specialist | DX: S52.021S Displaced fracture of olecranon process without intraarticular extension of right ulna, sequela (principal); W19.XXXS Unspecified fall, sequela; M86.431 Chronic osteomyelitis with draining sinus, right radius and ulna; M25.521 Pain in right elbow; S52.023A Displaced fracture of olecranon process without intraarticular extension of unspecified ulna, initial encounter for closed fracture | CPT/HCPCS: 73080; 99205 ==

== ENCOUNTER → 2022-02-07 09:07 | Outpatient (BNVA) | payer MEDICARE, MEDICAID, SELFPAY | PROVIDERS: PCP Family Medicine; Visit Provider Student in an Organized Health Care Education/Training Program | DX: X58.XXXA Exposure to other specified factors, initial encounter (principal); M86.431 Chronic osteomyelitis with draining sinus, right radius and ulna; S52.021S Displaced fracture of olecranon process without intraarticular extension of right ulna, sequela | CPT/HCPCS: 99204 ==

== ENCOUNTER → 2022-02-19 09:34 | Outpatient (BNVA) | payer MEDICARE, MEDICAID, SELFPAY | PROVIDERS: PCP Family Medicine; Visit Provider Specialist | DX: S22.000A Wedge compression fracture of unspecified thoracic vertebra, initial encounter for closed fracture (principal); S32.000A Wedge compression fracture of unspecified lumbar vertebra, initial encounter for closed fracture; Q78.0 Osteogenesis imperfecta; M48.061 Spinal stenosis, lumbar region without neurogenic claudication | CPT/HCPCS: 36415; 85651; 86140; 99213 ==

== ENCOUNTER 2022-03-15 09:25 | Outpatient (CLI) | payer MEDICARE, MEDICAID, SELFPAY ==
--- NOTE | 2022-03-15 | CT_ITS ---
WS: [id number] CT RIGHT ELBOW, NONCONTRAST, 3-D. HISTORY: right elbow pain Technique: All CT scans at [facility] use at least one of these dose optimization techniques: automated exposure control; mA and/or kV adjustment per patient size (includes targeted exams where dose is matched to clinical indication); or iterative reconstruction. DLP: 144.39 mGy.cm COMPARISON: Radiograph 12/26/2021 Status post plate and screw fixation involving the proximal ulna extending from the olecranon into th e proximal diaphysis. Distal plate is from the bone by 5.5 mm. The distal 2 screws are slig htly retracted from the bone. No definite lucency surrounding the screws. Healing proximal fracture. There is cortical irregularity along the articular surface at the elbow joint. Additional osteophytos is and joint space narrowing involving the lateral joint space. The alignment at the elbow joint is n ormal with significant posttraumatic osteoarthritic changes. CT/CT elbow RT wo con* [id number] IMPRESSION: 1. 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 2. Proximal ulnar plate and screw fixation. 3. The distal plate and the distal screws x 2 are retracted from the bone.
== END 2022-03-15 09:26 | disposition home or self-care (01) ==
PROVIDERS: PCP Family Medicine; Visit Provider Specialist
DX: M25.521 Pain in right elbow (principal)
CPT/HCPCS: 73200

== ENCOUNTER 2022-04-12 08:15 | Outpatient (CLI) | payer MEDICARE, MEDICAID, SELFPAY ==
--- NOTE | 2022-04-12 08:27 | NM_ITS ---
WS: [id number] THREE-PHASE BONE SCAN HISTORY: R ELBOW PAIN/FX OF OLECRANON PROCESS OF ULNA COMPARISON: CT 03/15/2022 and radiographs 12/26/2021 RIGHT elbow Patient is is injected with 22.5 mCi Tc99m HDP intravenously. Immediate angiographic phase imaging is performed over the area of concern. Static blood pool imaging also performed. Two-hour whole-body sc intigrams performed in anterior and posterior projections. Additional large field of view imaging sub mitted as necessary. There is mild increased uptake involving the RIGHT elbow on the angiographic and blood pool phase tomasz ging. On the angiographic imaging the increased uptake is along the proximal forearm. On the blood po ol phase imaging there is more focal increased uptake in the proximal forearm but also near the joint surface. Due to positioning of the patient this is probably the medial joint space. On the delayed imaging there is marked increased uptake involving the proximal ulna and extending int o the ulnar metaphysis. Increased uptake involves both the olecranon and the coronoid. Increased upta ke involves the radial head also. Mild AC joint and glenohumeral joint arthritis. Focal uptake in the posterior LEFT 10th or 11th rib. Likely healing rib fracture. Degenerative changes at the knees and ankles. NM/NM bone 3 phase [id number] IMPRESSION: 1. Bone scan is positive on all 3 phases centered at the RIGHT elbow. Findings are suspicious for cellulitis and osteomyelitis. Some of the uptake can also b e related to a healing fracture and the hardware. 2. LEFT posterior 10th or 11th rib fracture.
== END 2022-04-12 08:16 | disposition home or self-care (01) ==
PROVIDERS: PCP Family Medicine; Visit Provider Specialist
DX: M25.521 Pain in right elbow (principal); S52.021A Displaced fracture of olecranon process without intraarticular extension of right ulna, initial encounter for closed fracture; S22.42XA Multiple fractures of ribs, left side, initial encounter for closed fracture; X58.XXXA Exposure to other specified factors, initial encounter
CPT/HCPCS: 78315; A9561

== ENCOUNTER → 2022-04-17 14:08 | Outpatient (BNVA) | payer MEDICARE, MEDICAID, SELFPAY | PROVIDERS: PCP Family Medicine; Visit Provider Specialist | DX: M86.431 Chronic osteomyelitis with draining sinus, right radius and ulna (principal); S52.021S Displaced fracture of olecranon process without intraarticular extension of right ulna, sequela; X58.XXXS Exposure to other specified factors, sequela; Z96.9 Presence of functional implant, unspecified | CPT/HCPCS: 73080; 99214 ==

== ENCOUNTER → 2022-05-16 09:35 | Outpatient (BNVA) | payer MEDICARE, MEDICAID, SELFPAY | PROVIDERS: PCP Family Medicine; Visit Provider Specialist | DX: S32.000A Wedge compression fracture of unspecified lumbar vertebra, initial encounter for closed fracture (principal); S22.000A Wedge compression fracture of unspecified thoracic vertebra, initial encounter for closed fracture; Q78.0 Osteogenesis imperfecta; M48.061 Spinal stenosis, lumbar region without neurogenic claudication; Y93.9 Activity, unspecified; Z79.891 Long term (current) use of opiate analgesic | CPT/HCPCS: 99213 ==

== ENCOUNTER → 2022-08-26 09:13 | Outpatient (BNVA) | payer MEDICARE, MEDICAID, SELFPAY | PROVIDERS: PCP Family Medicine; Visit Provider Specialist | DX: M48.061 Spinal stenosis, lumbar region without neurogenic claudication (principal); S22.000S Wedge compression fracture of unspecified thoracic vertebra, sequela; S32.000S Wedge compression fracture of unspecified lumbar vertebra, sequela; X58.XXXS Exposure to other specified factors, sequela; Z79.891 Long term (current) use of opiate analgesic | CPT/HCPCS: 99213 ==

== ENCOUNTER → 2022-11-28 10:03 | Outpatient (BNVA) | payer MEDICARE, MEDICAID, SELFPAY | PROVIDERS: PCP Family Medicine; Visit Provider Specialist | DX: S32.000S Wedge compression fracture of unspecified lumbar vertebra, sequela (principal); S22.000S Wedge compression fracture of unspecified thoracic vertebra, sequela; M48.062 Spinal stenosis, lumbar region with neurogenic claudication; G25.81 Restless legs syndrome; X58.XXXA Exposure to other specified factors, initial encounter; F11.20 Opioid dependence, uncomplicated | CPT/HCPCS: 36415; 82728; 83540; 83550; 99213 ==

== ENCOUNTER → 2023-02-05 09:39 | Outpatient (BNVA) | payer MEDICARE, MEDICAID, SELFPAY | PROVIDERS: PCP Family Medicine; Visit Provider Family Medicine | DX: Z12.5 Encounter for screening for malignant neoplasm of prostate (principal); Z13.6 Encounter for screening for cardiovascular disorders | CPT/HCPCS: 80053; 80061; 84443; 85025; G0103 ==

== ENCOUNTER → 2023-03-06 14:36 | Outpatient (BNVA) | payer MEDICARE, MEDICAID, SELFPAY | PROVIDERS: PCP Family Medicine; Visit Provider Specialist | DX: R29.90 Unspecified symptoms and signs involving the nervous system (principal); Q78.0 Osteogenesis imperfecta; S32.000A Wedge compression fracture of unspecified lumbar vertebra, initial encounter for closed fracture; S22.000A Wedge compression fracture of unspecified thoracic vertebra, initial encounter for closed fracture; G89.29 Other chronic pain; M48.061 Spinal stenosis, lumbar region without neurogenic claudication; X58.XXXA Exposure to other specified factors, initial encounter | CPT/HCPCS: 99213 ==

== ENCOUNTER → 2023-03-24 13:26 | Outpatient (BNVA) | payer MEDICARE, MEDICAID, SELFPAY | PROVIDERS: PCP Family Medicine; Visit Provider Specialist | DX: M25.522 Pain in left elbow (principal); M86.431 Chronic osteomyelitis with draining sinus, right radius and ulna; Z96.9 Presence of functional implant, unspecified | CPT/HCPCS: 73080; 99214 ==

== ENCOUNTER → 2023-06-04 14:25 | Outpatient (BNVA) | payer MEDICARE, MEDICAID, SELFPAY | PROVIDERS: PCP Family Medicine; Visit Provider Specialist | DX: M48.062 Spinal stenosis, lumbar region with neurogenic claudication (principal) | CPT/HCPCS: 99213 ==

== ENCOUNTER → 2023-09-26 15:11 | Outpatient (BNVA) | payer MEDICARE, MEDICAID, SELFPAY | PROVIDERS: PCP Family Medicine; Visit Provider Specialist | DX: R29.90 Unspecified symptoms and signs involving the nervous system (principal); M48.062 Spinal stenosis, lumbar region with neurogenic claudication; S22.000A Wedge compression fracture of unspecified thoracic vertebra, initial encounter for closed fracture; X58.XXXA Exposure to other specified factors, initial encounter | CPT/HCPCS: 99213 ==

== ENCOUNTER → 2024-01-23 14:45 | Outpatient (BNVA) | payer MEDICARE, MEDICAID, SELFPAY | PROVIDERS: PCP Family Medicine; Visit Provider Specialist | DX: R29.90 Unspecified symptoms and signs involving the nervous system (principal); M48.062 Spinal stenosis, lumbar region with neurogenic claudication; S22.000A Wedge compression fracture of unspecified thoracic vertebra, initial encounter for closed fracture; Q78.0 Osteogenesis imperfecta; J44.9 Chronic obstructive pulmonary disease, unspecified; S22.000D Wedge compression fracture of unspecified thoracic vertebra, subsequent encounter for fracture with routine healing; J43.9 Emphysema, unspecified; F17.200 Nicotine dependence, unspecified, uncomplicated; X58.XXXA Exposure to other specified factors, initial encounter; X58.XXXD Exposure to other specified factors, subsequent encounter | CPT/HCPCS: 99214 ==

== ENCOUNTER → 2024-09-16 10:03 | Outpatient (BNVA) | payer MEDICARE, MEDICAID, SELFPAY | PROVIDERS: PCP Family Medicine; Visit Provider Specialist | DX: R29.90 Unspecified symptoms and signs involving the nervous system (principal); M48.062 Spinal stenosis, lumbar region with neurogenic claudication; M48.061 Spinal stenosis, lumbar region without neurogenic claudication; S22.000D Wedge compression fracture of unspecified thoracic vertebra, subsequent encounter for fracture with routine healing; G25.81 Restless legs syndrome; J43.9 Emphysema, unspecified; X58.XXXD Exposure to other specified factors, subsequent encounter | CPT/HCPCS: 99214 ==

== ENCOUNTER 2025-04-04 18:23 | Inpatient (IN) | payer MEDICARE, MEDICAID, SELFPAY ==
[2025-04-04] VITALS (10 sets, daily range): BP systolic 125–165; BP diastolic 68–82; PULSE 103–123; RESP 18–20; TEMP 36.8; O2SAT 90–95; BMI 27.4
--- NOTE | 2025-04-04 18:30 | XRR_ITS ---
PROCEDURE INFORMATION: Exam: XR Chest Exam date and time: 04/04/2025 6:33 PM Age: 69 years old Clinical indication: Shortness of breath; Additional info: Chest pain TECHNIQUE: Imaging protocol: Radiologic exam of the chest. Views: 1 view. Total images: 206 COMPARISON: 1. CR (CHEST, ) 10/31/2021 7:27 PM 2. CR XR chest 1V [id number] 11/07/2018 1:[address] abdomen pelvis w con* [id number] 10/31/2021 6:[address] thoracic spin wo con* [id number] 12/18/2020 2:52 PM FINDINGS: Limitations: No fiducial skin marker was placed at the site of clinical concern. Lungs: Lung interstitial prominence without focal consolidation. Lungs are well-aerated without focal acute pathologic pulmonary parenchymal process. Pleural spaces: Unremarkable. No pleural effusion. No pneumothorax. Heart/Mediastinum: The heart is not enlarged. Vasculature: Aortic wall demonstrates mild atherosclerotic calcification. Bones/joints: Multiple old right-sided healed fracture deformities. Left-sided less conspicuous chronic healed rib fracture deformities. Severe right glenohumeral degenerative osteoarthritis. Right humerus proximal buttress plate unchanged. No periprosthetic fracture or new bony radiolucency or mechanical prosthesis failure. Acromioclavicular joint mild chronic degenerative arthrosis, greater on the right side. Kyphotic thoracic vertebral column characteristic of focal angular deformity at the mid or upper thoracic levels consistent with chronic gibbus deformity likely accounted for by thoracic vertebral compression fracture deformities associated with severe osteopenia. Shoulder glenohumeral osteoarthritis. Severe chronic generalized degenerative changes of the vertebral column characterized by multilevel osteophyte formation, degenerative disc height loss, vacuum disc phenomenon, and degenerative facet arthrosis commensurate with patient's age. No acute displaced fracture, subluxation or dislocation. Qualitative demineralization of bones (osteopenia) limiting evaluation for nondisplaced fractures. Soft tissues: Soft tissues are normal as visualized, demonstrating no masses or induration. XR/XR chest 1V portable [id number] IMPRESSION: 1. No acute cardiopulmonary disease or adverse interval change radiographically. 2. No acute displaced fracture with an intermediate degree of confidence in the setting of significant osteopenia. 3. Generalized advanced skeletal chronic degenerative and other nonacute findings as described above. 4. Lung interstitial prominence without focal consolidation. COMMENTS: 1. If symptoms persist or worsen, consider repeat imaging with a fiducial at the troublesome clinical area of concern or a follow-up study in 7-10 days. 2. Qualitative demineralization of bones (osteopenia) limiting evaluation for nondisplaced fractures.
--- NOTE | 2025-04-04 18:34 | W.ED.SOB ---
HPI - SOB/Dyspnea General: Chief Complaint: ER Hold Stated Complaint: resp distress Time Seen by Provider: 04/04/25 18:26 History of Present Illness: HPI Narrative: 69-year-old man with a history of congestive heart failure, osteogenesis imperfecta, depression, COPD, restless legs, chronic pain syndrome, lower extremity swelling in the past who presents to the emergency room with increased work of breathing and lower extremity swelling. EMS reported a history of CHF but I do not see one in the history. He mainly follows with neurology here. Also with orthopedics. He says he is felt more weak and short of breath but is a rather poor historian. He said a friend called the ambulance because he was short of breath. Related Data Home Medications ?Medication ?Instructions ?Recorded ?Confirmed multivitamin 1 tab PO QAM 07/15/19 04/05/25 sennosides 8.6 mg-docusate sodium 3 tab-cap PO BID 07/15/19 04/05/25 50 mg capsule (Senna Plus) calcium carbonate (Calcium 600) 600 mg PO DAILY 08/19/19 04/05/25 ferrous sulfate 325 mg (65 mg 325 mg PO DAILY 08/19/19 04/05/25 iron) tablet (FeroSul) magnesium 200 mg tablet 200 mg PO DAILY 08/19/19 04/05/25 saw palmetto 500 mg capsule 500 mg PO DAILY 08/19/19 04/05/25 Previous Rx's ?Medication ?Instructions ?Recorded hydroxyzine HCl 50 mg tablet See Rx Instructions .Route 02/18/25 .COMPLEX #30 tabs albuterol sulfate 90 mcg/actuation 2 puff inhalation QID PRN 03/08/25 aerosol inhaler (Ventolin HFA) shortness of breath or wheezing #8.5 grams alendronate 70 mg tablet See Rx Instructions .Route 03/14/25 .COMPLEX #4 tabs baclofen 10 mg tablet See Rx Instructions .Route 03/14/25 .COMPLEX #360 tabs hydrocodone 10 mg-acetaminophen 1 tab PO QID PRN pain 30 days #120 03/15/25 325 mg tablet tabs doxycycline hyclate 100 mg capsule 100 mg PO BID 7 days #14 caps 04/04/25 Allergies Allergy/AdvReac Type Severity Reaction Status Date / Time fentanyl Allergy Unknown Unknown Verified 09/16/24 10:18 Review of Systems Narrative: Constitutional symptoms: Negative except as documented in HPI. Skin symptoms: Negative except as documented in HPI. Eye symptoms: Negative except as documented in HPI. ENMT symptoms: Negative except as documented in HPI. Respiratory symptoms: Negative except as documented in HPI. Cardiovascular symptoms: Negative except as documented in HPI. Gastrointestinal symptoms: Negative except as documented in HPI. Genitourinary symptoms: Negative except as documented in HPI. Musculoskeletal symptoms: Negative except as documented in HPI. Neurologic symptoms: Negative except as documented in HPI. Psychiatric symptoms: Negative except as documented in HPI. Endocrine symptoms: Negative except as documented in HPI. PFSH ED PFSH: Medical History (Updated 04/05/25 @ 11:23 by Taylor Hussein MD) Post-traumatic stress disorder, chronic Dysthymic disorder Major depressive disorder, recurrent severe without psychotic features Osteogenesis imperfecta Surgical History Status post insertion of intrathecal pump Family History Denies family history of Diabetes CAD (coronary artery disease) Cancer Hypertension Stroke Social History Smoking and tobacco/nicotine status: current some day tobacco/nicotine user (1/2-1 pack a day) cigarettes Packs smoked per day: 1 Years cigarettes smoked: 40 Second hand smoke exposure: No Alcohol intake: current Alcohol intake frequency: holidays/special occasions only Substance/Drug Use: never Current gender identity: Male Special nikolai needs: No Physical Exam Narrative: EXAM NARRATIVE: General: Alert, no acute distress. Skin: Warm, dry. Head: Normocephalic, atraumatic. Neck: Supple, trachea midline. Eye: Extraocular movements are intact. Ears, nose, mouth and throat: mucosa moist. Cardiovascular: Regular, Normal peripheral perfusion. Patient has some edema with venous stasis dermatitis. Respiratory: Lungs are clear to auscultation, respirations are non-labored, breath sounds are equal, Symmetrical chest wall expansion. Gastrointestinal: Soft, Nontender, Non distended Musculoskeletal: Normal ROM, no deformity. Neurological: Alert and oriented, No focal neurological deficit observed. Psychiatric: Cooperative, appropriate mood & affect. Course Vital Signs: Vital signs: Vital Signs Temperature 98.0 F 04/05/25 07:05 Pulse Rate 114 H 09/30/25 07:44 Respiratory Rate 24 H 04/05/25 07:44 Blood Pressure 125/68 04/05/25 07:05 Pulse Oximetry 90 04/05/25 07:44 Oxygen Delivery Me thod Nasal Cannula 04/05/25 07:44 Oxygen Flow Rate 2 04/05/25 07:44 MDM - SOB/Dyspnea Medical Decision Making Differential diagnosis for patient with shortness of breath includes but is not limited to and based on the above HPI, review of systems and physical exam: Pneumonia. Bronchitis. Asthma or COPD with acute exacerbation. Acute coronary syndrome / RI. Pulmonary embolism. Anxiety. Congestive heart failure. Viral infections including influenza and Covid-19. Atrial fibrillation. Anxiety. Pleural effusion. Pneumothorax. Orders placed to evaluate differential diagnosis based on the above differential, HPI and physical exam EKG: Sinus tachycardia, No ST-T changes, no ectopy, normal IA & QRS intervals, This was reviewed and interpreted by myself the ER physician Chest x-ray: Chronic findings as seen in the read. No acute process. No infiltrate. No pneumothorax. This was reviewed and interpreted by myself the emergency room physician. I also reviewed the radiology report. Lab Review: Laboratory results were reviewed and interpreted by myself the emergency room physician. No leukocytosis. No anemia. No renal failure. I reviewed the patient's medical record. 69-year-old man with a history of congestive heart failure?, osteogenesis imperfecta, depression, COPD, restless legs, chronic pain syndrome, lower extremity swelling Reexamination: Patient remained stable. No increased work of breathing. No altered mental status. No focal motor deficits. Patient has been on 2 L nasal cannula. Assessment and plan: Shortness of breath Edema Venous stasis changes Hypoxemia COPD with acute exacerbation ? IV Lasix, IV doxycycline. -I discussed the patient with the hospitalist on-call who is admitting the patient. - Discussed findings and plan with patient. Answered any questions. - All laboratory values were reviewed and interpreted personally by myself, the ER physician - All imaging was reviewed and interpreted personally by myself, the ER physician. - Evaluation and treatment of this problem were appropriate in the emergency setting Lab Data 04/04/25 19:19 04/04/25 19:19 Labs/Radiology: Radiology Impressions Chest X-Ray 04/04/25 18:30 IMPRESSION: 1. No acute cardiopulmonary disease or adverse interval change radiographically. 2. No acute displaced fracture with an intermediate degree of confidence in the setting of significant osteopenia. 3. Generalized advanced skeletal chronic degenerative and other nonacute findings as described above. 4. Lung interstitial prominence without focal consolidation. COMMENTS: 1. If symptoms persist or worsen, consider repeat imaging with a fiducial at the troublesome clinical area of concern or a follow-up study in 7-10 days. 2. Qualitative demineralization of bones (osteopenia) limiting evaluation for nondisplaced fractures. Chest CTA 04/04/25 20:29 IMPRESSION: 1. No pulmonary artery embolism identified. 2. No acute aortic injury identified. Chronic moderate distension of the ascending aorta 4.3 cm diameter. 3. Generalized hepatic steatosis. 4. Moderate burden of colonic stool insofar as the colon is visualized within the field of view. 5. Dorsal thoracic kyphosis, chronic gibbus deformity accounted for by localized anterior wedge vertebral chronic compression fracture deformity centered at the T7 level in the setting of severe osteopenia. 6. No acute displaced fracture with an intermediate degree of confidence in the setting of significant osteopenia. COMMENTS: 1. If symptoms persist or worsen, consider repeat imaging with fiducial at troublesome clinical area of concern or follow-up study in 7-10 days. 2. Qualitative demineralization of bones (osteopenia) limiting evaluation for nondisplaced fractures. 3. The presence of pulmonary emphysema on CT is an independent risk factor for lung cancer. In the absence of a history or active diagnosis of lung cancer, it is recommended that this patient with emphysema be evaluated for enrollment in a low dose CT lung cancer screening program. Laboratory Results WBC 4.93 10^3/uL (3.29-11.43) 04/04/25 19:19 RBC 4.57 10^6/uL (3.85-5.65) 04/04/25 19:19 Hgb 14.00 g/dL (11.27-16.99) 04/04/25 19:19 Hct 42.8 % (37-53) 04/04/25 19:19 MCV 93.7 fl (82-101) 04/04/25 19:19 MCH 30.6 pg (27-33) 04/04/25 19:19 MCHC 32.7 g/dL (30-55) 04/04/25 19:19 RDW 13.6 % (12.1-15.1) 04/04/25 19:19 Plt Count 202 10^3/cmm (157-399) 04/04/25 19:19 MPV 10.1 fL (7.4-10.4) 04/04/25 19:19 Neut % (Auto) 65.0 % 04/04/25 19:19 Lymph % (Auto) 23.7 % 04/04/25 19:19 Cameron % (Auto) 6.9 % 04/04/25 19:19 Eos % (Auto) 2.6 % 04/04/25 19:19 Baso % (Auto) 1.6 % 04/04/25 19:19 Neut # (Auto) 3.20 10^3/uL (1.8-7.7) 04/04/25 19:19 Lymph # (Auto) 1.2 10^3/uL (0.8-4.8) 04/04/25 19:19 Cameron # (Auto) 0.3 10^3/uL (0.2-0.9) 04/04/25 19:19 Eos # (Auto) 0.1 10^3/uL (0.0-0.8) 04/04/25 19:19 Baso # (Auto) 0.1 10^3/uL (0.0-0.1) 04/04/25 19:19 Nucleated RBC % (auto) 0 % 04/04/25 19:19 Nucleated RBCs # 0.0 /100WBC 04/04/25 19:19 Specimen Type Arterial 04/04/25 19:24 Sample Site Radial, left 04/04/25 19:24 ABG pH 7.44 (7.35-7.45) 04/04/25 19:24 ABG pCO2 40.7 mmHg (35-45) 04/04/25 19:24 ABG pO2 70.1 mmHg (80.0-100.0) L 04/04/25 19:24 ABG PO2/FiO2 Ratio 219 04/04/25 19:24 ABG HCO3 27.3 mmol/L (22-26) H 04/04/25 19:24 ABG O2 Saturation 95.8 04/04/25 19:24 ABG Base Excess 2.8 mmol/L (-2.0-2.0) H 04/04/25 19:24 Fawad Test Pos 04/04/25 19:24 A-a O2 Gradient 14.1 mmHg (5-10) H 04/04/25 19:24 Hematocrit 43.1 % (42-52) 04/04/25 19:24 Hgb O2 Saturation 94.2 % (95-100) L 04/04/25 19:24 Carboxyhemoglobin 1.5 %THgb (0.4-20.1) 04/04/25 19:24 Methemoglobin 0.1 % (0.4-1.5) L 04/04/25 19:24 Total Hemoglobin 14.1 g/dL (14-18) 04/04/25 19:24 Sodium 142.0 mmol/L (131-143) 04/04/25 19:24 Potassium 3.8 mmol/L (3.5-5.0) 04/04/25 19:24 Glucose 116.0 mg/dL (70-115) H 04/04/25 19:24 Ionized Calcium 1.2 mmol/L (1.1-1.4) 04/04/25 19:24 O2 Delivery Device Nc 04/04/25 19:24 O2 Liters/Min 3.0 % 04/04/25 19:24 FiO2 32.0 % 04/04/25 19:24 Customer Experience Strategist ID [email or web address] 04/04/25 19:24 Sodium 140 mmol/L (136-145) 04/04/25 19:19 Potassium 4.0 mmol/L (3.5-5.1) 04/04/25 19:19 Chloride 100 mmol/L (98-107) 04/04/25 19:19 Carbon Dioxide 27 mmol/L (22-29) 04/04/25 19:19 Anion Gap 17.0 (5-19) 04/04/25 19:19 BUN 10 mg/dL (8-23) 04/04/25 19:19 Creatinine 0.9 mg/dL (0.7-1.2) 04/04/25 19:19 GFR Calculation 83.9 mL/min (90-130) L 04/04/25 19:19 Glucose 114 mg/dL (65-115) 04/04/25 19:19 Calculated Osmolality 290 mOsm/kg (285-295) 04/04/25 19:19 Lactic Acid 2.1 mmol/L (0.5-2.2) 04/04/25 19:19 Lactic Acid (Sepsis) 2.1 mmol/L (0.5-2.2) 04/04/25 22:37 Calcium 8.9 mg/dL (8.5-10.5) 04/04/25 19:19 Total Bilirubin 0.4 mg/dL (0.15-1.2) 04/04/25 19:19 AST 28 U/L (0-40) 04/04/25 19:19 ALT 19 U/L (0-41) 04/04/25 19:19 Alkaline Phosphatase 64 U/L (40-130) 04/04/25 19:19 Troponin T Baseline 27 ng/L (0-15) H 04/04/25 19:19 Troponin T 120 Minute 20.34 ng/L (0-15) H 04/04/25 21:23 Delta Troponin T -6.66 ABS# (0-10) L 04/04/25 21:23 C-Reactive Protein 9.3 mg/L (0.0-4.9) H 04/04/25 19:19 NT-Pro-B Natriuret Pep 111 pg/mL (0-125) 04/04/25 19:19 Total Protein 7.3 g/dL (6.6-8.7) 04/04/25 19:19 Albumin 4.4 g/dL (3.5-5.2) 04/04/25 19:19 Globulin 2.9 g/dL (1.3-4.6) 04/04/25 19:19 Urine Color Yellow (Yellow) 04/04/25 19:24 Urine Appearance Clear (CLEAR) 04/04/25 19:24 Urine pH 7.0 (5-7) 04/04/25 19:24 Ur Specific [place] 1.006 (1.005-1.030) 04/04/25 19:24 Urine Protein Negative (Negative) 04/04/25 19:24 Urine Glucose (UA) Negative (Normal) 04/04/25 19:24 Urine Ketones Negative (Negative) 04/04/25 19:24 Urine Blood Negative (Negative) 04/04/25 19:24 Urine Nitrate Negative (Negative) 04/04/25 19:24 Urine Bilirubin Negative (Negative) 04/04/25 19:24 Urine Urobilinogen 0.2 mg/dL (Negative) 04/04/25 19:24 Ur Leukocyte Esterase Negative (Negative) 04/04/25 19:24 Urine RBC 0-2 /hpf (0-2) 04/04/25 19:24 Urine WBC None /hpf (0-5) 04/04/25 19:24 Ur Squamous Epith Cells 0-4 /hpf (0-5) H 04/04/25 19:24 Amorphous Sediment Not Reportable 04/04/25 19:24 Urine Bacteria None /hpf (NONE) 04/04/25 19:24 Influenza A (PCR) Negative (Negative) 04/04/25 19:24 Influenza Type B (PCR) Negative (Negative) 04/04/25 19:24 RSV (PCR) Negative (Negative) 04/04/25 19:24 SARS-CoV-2 (PCR) Negative (Negative) 04/04/25 19:24 All radiology interpretation(s) finalized by discharge Discharge Plan Discharge Patient Disposition: Admitted As Inpatient Admit Provider: Cassie Black Clinical Impression: Edema, SOB (shortness of breath), Acute upper respiratory infection, Hypoxemia, COPD with acute exacerbation Condition: Stable Discharge Diet: As Directed Discharge Activity: Increase activity as tolerated Coding Level of Care Code ED Radiologist Chief Of Breast Imaging for Miguel Grier
--- NOTE | 2025-04-04 18:44 | ECG_ITS ---
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 Measurements Intervals [place] Rate: 106 P: 22 MI: 159 QRS: 62 QRSD: 99 T: 30 QT: 347 QTc: 461 Interpretive Statements SUPRAVENTRICULAR RHYTHM (BASELINE ARTIFACT) WITH PVCs NONSPECIFIC T-WAVE ABNORMALITY Compared to ECG 10/31/2021 19:01:41 Ventricular premature complex(es) now present Electronically Signed On 04-07-2025 08:47:05 CDT by Bill Barton M.D. [email or web address]
[2025-04-04 19:36] LABS: ABG PCO2 40.7 mmHg (35-45); ABG PH Result 7.44 (7.35-7.45); Alveolar-Arterial Oxygen Gradi 14.1 mmHg (5-10); Arterial Blood Gas Hematocrit 43.1 % (42-52); Blood Gas Allen Test Pos; Blood Gas LPM 3.0 %; Blood Gas Operator Identificat gerca; Blood Gas Sample Site Radial, left; Blood Gas Sample Type Arterial; Carboxyhemoglobin 1.5 %THgb (0.4-20.1); Glucose Level-ABG 116.0 mg/dL (70-115); HCO3 ABG 27.3 mmol/L (22-26); Ionized Calcium Level - ABG 1.2 mmol/L (1.1-1.4); Methemoglobin 0.1 % (0.4-1.5); Oxygen Saturation ABG 95.8; PO2 ABG 70.1 mmHg (80.0-100.0); PO2 FiO2 Ratio Arterial Blood 219; Potassium Level - ABG 3.8 mmol/L (3.5-5.0); Sodium Level - ABG 142.0 mmol/L (131-143)
[2025-04-04 19:46] LABS: Hematocrit 42.8 % (37-53); Hemoglobin 14.00 g/dL (11.27-16.99); Mean Corpuscular HGB Conc 32.7 g/dL (30-55); Mean Corpuscular Hemoglobin 30.6 pg (27-33); Mean Corpuscular Volume 93.7 fl (82-101); Nucleated Red Blood Cells % 0 %; Platelet Count 202 10^3/cmm (157-399); Red Blood Count 4.57 10^6/uL (3.85-5.65); White Blood Count 4.93 10^3/uL (3.29-11.43)
[2025-04-04 20:04] LABS: Lactic Sepsis W/Reflex 2.1 mmol/L (0.5-2.2)
[2025-04-04 20:05] LABS: Glucose Urine UA Negative (Normal); Nitrate Urine Negative (Negative); Specific Gravity, Urine 1.006 (1.005-1.030)
[2025-04-04 20:07] LABS: Troponin(5th) Baseline 27 ng/L (0-15)
[2025-04-04 20:18] LABS: Alanine Aminotransferase 19 U/L (0-41); Albumin Level 4.4 g/dL (3.5-5.2); Alkaline Phosphatase 64 U/L (40-130); Anion Gap 17.0 (5-19); Aspartate Amino Transferase 28 U/L (0-40); Blood Urea Nitrogen 10 mg/dL (8-23); Calcium 8.9 mg/dL (8.5-10.5); Carbon Dioxide 27 mmol/L (22-29); Chloride 100 mmol/L (98-107); Creatinine Clr Calc Pharmacy 69.1809; Globulin 2.9 g/dL (1.3-4.6); Glucose 114 mg/dL (65-115); NT Pro B Type Natriuretic Pept 111 pg/mL (0-125); Osmolality Calculated 290 mOsm/kg (285-295); Potassium 4.0 mmol/L (3.5-5.1); Sodium 140 mmol/L (136-145); Total Protein 7.3 g/dL (6.6-8.7)
[2025-04-04 20:23] LABS: UA Manual Slide Review YES
--- NOTE | 2025-04-04 20:29 | CTR_ITS ---
PROCEDURE INFORMATION: Exam: CTA Chest With Contrast Exam date and time: 04/04/2025 9:01 PM Age: 69 years old Clinical indication: Other: Hypoxemia; Additional info: Hypoxemia, tachycardia TECHNIQUE: Imaging protocol: Computed tomographic angiography of the chest with contrast. Exam focused on the arteries. 3D rendering (Not supervised by radiologist): MIP and/or 3D reconstructed images were created by the technologist. Total images: 431 Radiation optimization: All CT scans at this facility use at least one of these dose optimization techniques: automated exposure control; mA and/or kV adjustment per patient size (includes targeted exams where dose is matched to clinical indication); or iterative reconstruction. Contrast material: OMNIPAQUE 350; Contrast volume: 100 ml; Contrast route: INTRAVENOUS (IV); COMPARISON: 1. CR (CHEST, ) 04/04/2025 6:33 PM 2. CR (CHEST, ) 10/31/2021 7:27 PM RADIATION DOSE METRICS: Total DLP (mGy-cm): 427.66 FINDINGS: Tubes, catheters and devices: Spinal stimulator lead is noted within the anterior thoracic spinal canal extending up to a proximally the T10 level. Pulmonary arteries: Pulmonary artery evaluation of good technical quality with no pulmonary artery embolism identified. Aorta: 4.3 cm nonruptured ascending thoracic aortic aneurysm. Normal caliber descending thoracic aorta. Other arteries: Vascular structures demonstrate atherosclerosis. Thyroid: The thyroid gland is atrophic but otherwise normal. Trachea: Lower airway reveals no internal filling defects, secretions, or debris. Lungs: Right lung benign chronic granulomatous disease noted. Bibasilar opacities most consistent with subsegmental atelectasis. There are emphysematous changes in the lung apices. Lungs otherwise well-aerated without focal acute pathologic pulmonary parenchymal process. Pleural spaces: No significant pleural effusion. No pneumothorax. Heart: Mild cardiomegaly. No pericardial fluid collection or pathologic thickening. Lymph nodes: Right hilum/mediastinum calcified lymph nodes characteristic remote prior granulomatous organism exposure. No specific manifestations of active granulomatous disease. Mediastinal/hilum calcified lymph nodes characteristic remote prior granulomatous organism exposure. The basilar artery is patent. No significant stenosis. No aneurysm. Liver: Liver fatty infiltrated. Spleen: Spleen appears normal in contour and size without pathologic splenic mass. Adrenal glands: Adrenal glands are normal. Kidneys: Likely benign right renal cyst(s) are present, requiring no further evaluation, measuring as large as 12 cm diameter. Kidneys are normal insofar as visualized. No evidence of obstructing urinary tract calculus, hydroureteronephrosis or perinephric edema. Intestine: Moderate volume of stool throughout the short-segment of nondistended colon which is visualized within the field of view. Retroperitoneal space: Pancreas of normal thickness and contour demonstrating no pathologic pancreatic duct dilatation insofar as partially visualized allowing for limited retroperitoneal sonographic penetration due to body habitus and bowel gas. Bones/joints: Accountant Bookkeeper view demonstrates right proximal humerus buttress plate-screw fixation hardware and right elbow fixated by blade plate-screw fixation hardware. Sternomanubrial degenerative changes. Bilateral sternoclavicular joint mild chronic degenerative arthrosis. Thoracic kyphotic curvature of 100 degrees accounted for by T7 chronic anterior wedge compression fracture deformity of greater than 75% vertebral height loss, as well as less severe chronic T6 and T8 vertebral compression fracture deformities. Vertebral column multiple (greater than 4) consecutive prominent ventral bridging syndesmophytes characteristic of diffuse idiopathic skeletal hyperostosis (DISH). L2 fish-mouth vertebral body with compression of the superior and inferior endplates and prominent L1-L2 ventral syndesmophyte with vacuum phenomenon. Longstanding spinous degeneration/pseudoarticulation due to chronic contact between adjacent spinous processes ([place] Disease). Old healed rib fracture deformities present. No acute displaced fracture, subluxation or dislocation. Left glenohumeral mild degenerative osteoarthritis. 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 No prosthesis failure, prosthesis fracture or periprosthetic radiolucency. Qualitative demineralization of bones (osteopenia) limiting evaluation for nondisplaced fractures. Qualitative demineralization of bones (osteopenia) limiting evaluation for nondisplaced fractures. Soft tissues: Soft tissues are normal as visualized, demonstrating no masses or induration. Other findings: Otherwise no acute findings in the upper abdomen. CT/CT angio chest PE protcl [id number] IMPRESSION: 1. No pulmonary artery embolism identified. 2. No acute aortic injury identified. Chronic moderate distension of the ascending aorta 4.3 cm diameter. 3. Generalized hepatic steatosis. 4. Moderate burden of colonic stool insofar as the colon is visualized within the field of view. 5. Dorsal thoracic kyphosis, chronic gibbus deformity accounted for by localized anterior wedge vertebral chronic compression fracture deformity centered at the T7 level in the setting of severe osteopenia. 6. No acute displaced fracture with an intermediate degree of confidence in the setting of significant osteopenia. COMMENTS: 1. If symptoms persist or worsen, consider repeat imaging with fiducial at troublesome clinical area of concern or follow-up study in 7-10 days. 2. Qualitative demineralization of bones (osteopenia) limiting evaluation for nondisplaced fractures. 3. The presence of pulmonary emphysema on CT is an independent risk factor for lung cancer. In the absence of a history or active diagnosis of lung cancer, it is recommended that this patient with emphysema be evaluated for enrollment in a low dose CT lung cancer screening program.
[2025-04-04 20:40] LABS: Respiratory Syncytial Virus Ce NEGATIVE (Negative); SARS-CoV-2 PCR NEGATIVE (Negative)
[2025-04-04] MEDS: FUROsemide 10 mg/mL SDV 4mL 40 MG IVP (20:44)
[2025-04-04] MEDS: methylPREDNISolone sod succ 125 mg/2 mL INJ IVP (20:45)
[2025-04-04] MEDS: doxycycline 100 MG in sodium chloride 0.9% (plus) 100 ML IV (20:48)
[2025-04-04] MEDS: iohexol 350 mg/mL 500 mL Btl (per mL) IV (21:07)
[2025-04-04 21:28] LABS: Reflex Lactate Order REFLEX LACTIC ORDERD
[2025-04-04 21:48] LABS: Troponin 5 2HR 20.34 ng/L (0-15)
[2025-04-04 21:53] LABS: Troponin 5 2HR Delta -6.66 ABS# (0-10)
[2025-04-04 23:30] LABS: Lactic Acid level (Lactate) 2.1 mmol/L (0.5-2.2)
[2025-04-05] VITALS (14 sets, daily range): BP systolic 125–149; BP diastolic 59–91; PULSE 95–119; RESP 14–30; TEMP 36.7–37.3; O2SAT 89–93; BMI 30.4; BMI 30.3
--- NOTE | 2025-04-05 00:30 | ECG_ITS ---
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 Measurements Intervals [place] Rate: 104 P: 47 AR: 171 QRS: 28 QRSD: 104 T: 35 QT: 353 QTc: 466 Interpretive Statements SINUS TACHYCARDIA INFERIOR MYOCARDIAL INFARCTION , PROBABLY OLD [40+ ms Q WAVE AND/OR ST/T ABNORMALITY IN II/aVF] PROBABLE ANTEROLATERAL MYOCARDIAL INFARCTION , PROBABLY OLD [35 ms Q WAVE IN I/aVL/V3-V6] Compared to ECG 04/04/2025 18:44:39 Myocardial infarct finding now present Ventricular premature complex(es) no longer present T-wave abnormality no longer present Electronically Signed On 04-07-2025 09:01:55 CDT by Bill Barton M.D. [email or web address]
--- NOTE | 2025-04-05 01:43 | PM.HP ---
Providers/Chief Complaint Admitting Physician: Cassie Black MD Primary Care Provider: Radha Bright MD Chief Complaint: resp distress History of Present Illness As per the retrospective note and the patient Chan Dunlap is a 69 year old male With past medical history of lumbar stenosis with neurogenic claudication, severe kyphosis, osteogenic imperfecta presented with shortness of breath that has been going on since few days. The patient did not report any orthopnea PND chest pain chest pressure or any increase in lower leg swellings. At baseline patient reported having lower leg swellings with some weeping and chronic skin changes but no ulcers since few months. The patient does not require home oxygen. No fevers or chills or any recent vaccination, sick contacts or any travel. No history of any drug abuse. No abdominal symptoms and no change in his urinary or bowel habits. Review of Systems General: Reports: 10 or more systems reviewed and unremarkable except in HPI and below Medications/Allergies Home Medications ?Medication ?Instructions ?Recorded ?Confirmed ?Last Taken ?Type Cumin 1 tab as directed DAILY 07/15/19 09/16/24 10/30/21 History multivitamin 1 tab PO QAM 07/15/19 09/16/24 10/31/21 History sennosides 8.6 mg-docusate sodium 3 tab-cap PO BID 07/15/19 09/16/24 10/31/21 History 50 mg capsule (Senna Plus) calcium carbonate (Calcium 600) 600 mg PO DAILY 08/19/19 09/16/24 10/30/21 History ferrous sulfate 325 mg (65 mg 325 mg PO DAILY 08/19/19 09/16/24 10/30/21 History iron) tablet (FeroSul) magnesium 200 mg tablet 200 mg PO DAILY 08/19/19 09/16/24 10/31/21 History saw palmetto 500 mg capsule 500 mg PO DAILY 08/19/19 09/16/24 10/31/21 History hydrocodone 10 mg-acetaminophen 1 tab PO QID PRN pain 30 days #120 07/28/24 09/16/24 Unknown Rx 325 mg tablet tabs hydrocodone 10 mg-acetaminophen 1 tab PO QID PRN pain 30 days #120 07/28/24 09/16/24 Unknown Rx 325 mg tablet tabs hydrocodone 10 mg-acetaminophen 1 tab PO QID PRN pain 30 days #120 07/28/24 09/16/24 Unknown Rx 325 mg tablet tabs hydrocodone 10 mg-acetaminophen 1 tab PO QID PRN pain 30 days #120 01/31/25 Unknown Rx 325 mg tablet tabs hydroxyzine HCl 50 mg tablet See Rx Instructions .Route 02/18/25 Unknown Rx .COMPLEX #30 tabs albuterol sulfate 90 mcg/actuation 2 puff inhalation QID PRN 03/08/25 Unknown Rx aerosol inhaler (Ventolin HFA) shortness of breath or wheezing #8.5 grams alendronate 70 mg tablet See Rx Instructions .Route 03/14/25 Unknown Rx .COMPLEX #4 tabs baclofen 10 mg tablet See Rx Instructions .Route 03/14/25 Unknown Rx .COMPLEX #360 tabs hydrocodone 10 mg-acetaminophen 1 tab PO QID PRN pain 30 days #120 03/14/25 Unknown Rx 325 mg tablet tabs hydrocodone 10 mg-acetaminophen 1 tab PO QID PRN pain 30 days #120 03/15/25 Unknown Rx 325 mg tablet tabs dexamethasone 6 mg tablet 6 mg PO DAILY 5 days #5 tabs 04/04/25 Unknown Rx doxycycline hyclate 100 mg capsule 100 mg PO BID 7 days #14 caps 04/04/25 Unknown Rx Allergies Allergy/AdvReac Type Severity Reaction Status Date / Time fentanyl Allergy Unknown Unknown Verified 09/16/24 10:18 PFSH Acute PFSH: Medical History (Updated 04/05/25 @ 01:53 by Cassie Black MD) Post-traumatic stress disorder, chronic Dysthymic disorder Major depressive disorder, recurrent severe without psychotic features Osteogenesis imperfecta Surgical History Status post insertion of intrathecal pump Family History Denies family history of Diabetes CAD (coronary artery disease) Cancer Hypertension Stroke Social History Smoking and tobacco/nicotine status: current some day tobacco/nicotine user (1/2-1 pack a day) cigarettes Packs smoked per day: 1 Years cigarettes smoked: 40 Second hand smoke exposure: No Alcohol intake: current Alcohol intake frequency: holidays/special occasions only Substance/Drug Use: never Current gender identity: Male Special nikolai needs: No Vitals/I&O/Wt Last Vital Signs Temp 98.2 F 04/04/25 18:24 Pulse 110 H 04/05/25 01:00 Resp 18 04/04/25 23:00 BP 136/70 04/05/25 01:00 Pulse Ox 90 04/05/25 01:00 O2 Del Method Nasal Cannula 04/05/25 00:12 O2 Flow Rate 2 04/04/25 20:00 04/04/25 04/04/25 04/05/25 14:59 22:59 06:59 Output Total 1000 / 1000 Balance -1000 / -1000 Weight last 48 hrs Weight 70.307 kg Physical Exam Narrative: General: Alert and oriented, lying comfortably without any distress with 2 L oxygen through nasal cannula and able to speak in full sentences HEENT: Normocephalic, atraumatic, grossly unremarkable exam Cardio: normal rate rhythm, normal S1-S2 without any murmurs, rubs, or gallops and JVD normal Respiratory: normal vascular breathing on auscultation without any wheezes, stridor, rhonchi GI: Abdomen soft, nontender, nondistended, normoactive bowel sounds present all 4 quadrants, Neuro: intact cranial nerves motor and sensory and cerebellar/coordination function without any focal neurological deficit Behavior: Appropriate and cooperative Extremities: Adequate palpable pulses, bilateral lower limb pitting edema up to mid shins with redness and some weeping. Skin: Chronic bilateral lower limb skin changes with pitting edema Data 04/04/25 19:19 04/04/25 19:19 Micro: Microbiology 04/04/25 19:27 Blood Culture - Preliminary Blood SPECIMEN COLLECTED 04/04/25 19:19 Blood Culture - Preliminary Blood SPECIMEN COLLECTED A&P Assessment and plan 1. SOB (shortness of breath): Patient having gradual shortness of breath with negative proBNP, CT scan showing some element of emphysema but no pulmonary embolism and in the light of kyphosis and thoracic cavity deformity there is a possibility of underlying chronic process of respiratory failure leading to shortness of breath. Patient did not have any leukocytosis, fever or chills and respiratory viral panel was negative There is no indication of antibiotics at the moment. Echo Patient will benefit with evaluation of home O2 and pulmonology on board as outpatient 2. COPD (chronic obstructive pulmonary disease): Continue with DuoNebs as scheduled Overnight pulse ox monitoring 3. Edema of both lower legs due to peripheral venous insufficiency: Patient having chronic skin changes with weeping with high likelihood of venous insufficiency. Venous duplex bilateral and further management accordingly based on the result 4. Lumbar foraminal stenosis: Patient has been following with neurology Adequate analgesia 5. Osteogenesis imperfecta: Fall precaution considering patient have high risk of fractures Continue to monitor 6. Post-traumatic stress disorder, chronic: Continue to monitor for any neurological/psychological symptoms as inpatient Home medication did not reveal any antidepressant, to reconcile medications To be followed with the PCP at the time of discharge 7. Thoracic compression fracture: Patient did not have any active acute spinal tenderness, OT PT evaluation for mobility Adequate analgesia as needed 8. Restless legs: Patient having chronic restless leg syndrome and on iron supplements However no gabapentin/pregabalin in home medications. Continue monitor for symptoms and to address that as outpatient Currently stable no concerns voiced by the patient PDMP PDMP Reviewed: Not Reviewed Attestations Medical Necessity Statement*: Patient will need less than 1 midnight for arrangement of home O2 and further discharge accordingly after clinical assessment Time Spent in Patient Care: 16 - 35 minutes (>than 50% of time spent in counselling and/or direct pt care on unit). Other Attestations: Patient condition has been discussed at length with the patient/family, I have independently reviewed the chart labs imaging/diagnostics/EKG. the goals of care and code status with the patient/family/NOK/legal rental sales representative, and documented accordingly. The patient/family has been informed about the current condition and further plan of care. Agreed with the plan of care and understood without any language barrier. Every effort was made to ensure accuracy of language therapist. Any obvious errors or omissions should be clarified with the author of the document. Coding Level of Care Code Acute Code for Chg Fwd Diagnoses SOB (shortness of breath) R06.02 COPD (chronic obstructive pulmonary disease) J44.9 Edema of both lower legs due to peripheral venous insufficiency I87.2; R60.0 Lumbar foraminal stenosis M48.061 Osteogenesis imperfecta Q78.0 Post-traumatic stress disorder, chronic F43.12 Thoracic compression fracture S22.000A Restless legs G25.81
[2025-04-05 01:50] LABS: Troponin 5 6HR 23.48 ng/L (0-15)
[2025-04-05 01:52] LABS: Troponin 5 6HR Delta -3.52 ng/L (0-12)
--- NOTE | 2025-04-05 01:52 | USCV_ITS ---
Chan Dunlap Age: 69 Gender: M : 1955 Exam Date: 04/05/2025 11:21 Ordering Phys: Cassie Black MD Technologist: Exam Location: [facility] [place] Indication: cp murmur BP: 128 / 68 HR: 91 Rhythm: Sinus Technical Quality: Adequate MEASUREMENTS (Male / Female) Normal Values 2D ECHO LV Diastolic Diameter PLAX 4.0 cm 4.2 - 5.9 / 3.9 - 5.3 cm IVS Diastolic Thickness 1.3 cm 0.6 - 1.0 / 0.6 - 0.9 cm IVS Systolic Thickness 1.2 cm LVPW Diastolic Thickness 1.4 cm 0.6 - 1.0 / 0.6 - 0.9 cm LVPW Systolic Thickness 1.9 cm LVOT Diameter 2.2 cm LV Ejection Fraction 2D Teich 66.8 % LV Ejection Fraction MOD 4C 68.3 % LV Ejection Fraction MOD 2C 73.4 % LV Ejection Fraction 2C AL 72.5 % LA Diameter 4.0 cm RA Systolic Volume 4C AL 59.5 ml RA Systolic Volume 4C MOD 57.5 ml Aorta at Sinotubular Diameter 4.4 cm M-MODE LA Ao Ratio MM 1.5 AV Cusp Separation MM 2.5 cm DOPPLER AV Peak Velocity 290.7 cm/s LVOT Peak Velocity 162.0 cm/s AV Area Cont Eq vti 3.5 cm squared AV Area Cont Eq pk 2.1 cm squared MV Area PHT 6.1 cm squared Mitral E to A Ratio 0.7 TV Peak Velocity 229.0 cm/s TR Peak Velocity 254.0 cm/s TR Peak Gradient 25.8 mmHg TV Peak E Velocity 132.0 cm/s FINDINGS Left Ventricle Left ventricle is normal in size. LV systolic function is normal with EF of 60-65%. No regional wall motion abnormalities are seen. Grade 1 diastolic dysfunction Right Ventricle Normal in size and function Right Atrium Normal in size Left Atrium Normal in size Mitral Valve Grossly normal. Aortic Valve Aortic valve is thickened. No significant stenosis. Mild aortic regurgitation Tricuspid Valve Insufficient TR jet to calculate RVSP Pulmonic Valve Not well visualized Pericardium Normal Aorta Ascending aorta is dilated with diameter of 4.38 cm IVC Not well visualized CONCLUSIONS LV systolic function is normal with EF of 60-65% Grade 1 diastolic dysfunction Mild aortic regurgitation Ascending aorta is dilated with diameter of 4.38 cm Bill Barton MD (Electronically Signed) Final Date: 05 April 2025 12:21 S
--- NOTE | 2025-04-05 01:52 | USCV_ITS ---
Chan Dunlap Age: 69 Gender: M : 1955 Exam Date: 04/05/2025 11:39 Ordering Phys: Cassie Black MD Technologist: [place] [facility] [place]: bilat leg swelling PROCEDURES: The venous duplex Doppler examination of both lower extremities was performed in the standard fashion. The following venous structures were evaluated: common femoral vein, profunda vein, proximal portion of the greater saphenous vein, superficial femoral vein, and the popliteal vein. FINDINGS: Normal 2-D Doppler and augmentation and compressibility throughout the lower extremity venous structures. Additional imaging through the proximal calf veins also reveals no thrombus. Limited evaluation of the greater saphenous vein is patent with no thrombus. Normal inguinal lymph nodes. CONCLUSIONS No DVT bilateral lower extremities. Dr. Danna Nichole DO (Electronically Signed) Final Date: 05 April 2025 12:50 S
[2025-04-05] MEDS: HYDROmorphone tab 2 MG TABLET PO (03:11)
[2025-04-05 04:12] LABS: Thyroid Stimulating Hormone 0.56 uIU/mL (0.27-4.20)
[2025-04-05] MEDS: methylPREDNISolone sod succ 40 mg/mL INJ IVP ×2 (09:23→17:06)
[2025-04-05] MEDS: ferrous sulfate EC 325 mg Tablet PO (09:23)
[2025-04-05] MEDS: HYDROcodone-acetaminophen 10-325 mg Tablet 1 TAB PO (09:23)
--- NOTE | 2025-04-05 09:40 | PC.NURSE ---
Provider is updated that he has been running sinus tach 110-120's and an occasional spike upto the 130's. when he gets up. No new orders given.
--- NOTE | 2025-04-05 10:17 | PC.CHAP ---
Pastoral Care Encounter/Spiritual Assessment Type of Contact [] Declined dean of admissions visit [] Patient/Family/Request visit [] Outpatient visit [] Follow-up visit [] Physician referral [] Code/Alert [x] Routine visit [] Staff referral [] Actively dying [] Patient sleeping [] Family support [] [] Out of room [] Palliative care [] [] Receiving care in room [] Pre-surgical visit [] Trauma [] Long length of stay [] ICU visit [] Other: Relational/Emotional Strength [x] Patient feels connected with others/family/visitors/staff [] Distress [] Loneliness/isolation [] Abandonment Spirituality of Patient [] Person of [place] [] Attends Mormonism of their [place] [] Believes in Prayer [] Reads Bible or Mandaen materials [x] There are Spiritual issues to be addressed Manager [employer] Interventions [] Prayer [x] Active listening [x] Non-anxious presence [x] Spiritual/emotional support [] Crisis/trauma care [] Spiritual counseling [] Bereavement support [] Provided bereavement packet [] Provided Bible/devotional materials [] Provided toy/stuffed animal, coloring book to patient or family member [] Provided Communion [] Anointing/[place] [] Salvation [x] Completed spiritual assessment [x] Other: Declined Prayer. Impact on Illness or Injury [] Angry [] Fearful [] Anxious [] Often cries [] Exhaustion [] Unable to work [] Unable to attend gnosticist [] Unable to walk/stand [] Unable to read [] Unable to drive [] Unable to eat/drink [] Unable to sleep [] Unable to be with family [] Patient intubated [] Other: Summary Time spent with patient
--- NOTE | 2025-04-05 14:44 | P.PN_ITS ---
Subjective 2 Subjective: Patient was seen this morning, currently alert to person, to place, to time, can follow commands, does report shortness of breath, no fevers, no chills, no lightheadedness, dizziness, does report lower extremity edema Vitals/I&O/Wt Last Vital Signs Temp 98.0 F 04/05/25 07:05 Pulse 106 H 04/05/25 14:28 Resp 20 H 04/05/25 14:28 BP 125/68 04/05/25 07:05 Pulse Ox 89 L 04/05/25 14:28 O2 Del Method Nasal Cannula 04/05/25 14:28 O2 Flow Rate 2 04/05/25 14:28 04/04/25 04/05/25 04/05/25 22:59 06:59 14:59 Intake Total 100 / 100 720 / 720 Output Total 1000 / 1000 Balance -900 / -900 720 / 720 Weight last 48 hrs Weight 77.746 kg Weight 78.075 kg Weight 70.307 kg Physical Exam 2 Const: COMMON NORMALS: no acute distress and patient oriented x3 Resp: COMMON NORMALS: normal respiratory effort, No retractions and No use of accessory muscles AUSCULTATION: crackles and wheezes Cardio: COMMON NORMALS: regular rate, regular rhythm, S1 normal heart sound present and S2 normal heart sound present RATE: regular rate RHYTHM: r egular rhythm HEART SOUNDS: S1 normal heart sound present and S2 normal heart sound present GI: COMMON NORMALS: Normal to inspection, nondistended, normoactive bowel sounds present and non-tender Extremity: NARRATIVE EXTREMITY EXAM: Plus edema Neuro: COMMON NORMALS: patient oriented x3 Psych: COMMON NORMALS: mental status grossly normal Data 04/04/25 19:19 04/04/25 19:19 Micro: Microbiology 04/04/25 19:27 Blood Culture - Preliminary Blood SPECIMEN COLLECTED 04/04/25 19:19 Blood Culture - Preliminary Blood SPECIMEN COLLECTED A&P Assessment and plan 1. SOB (shortness of breath): 2. COPD (chronic obstructive pulmonary disease): 3. 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 Lumbar foraminal stenosis: 5. Osteogenesis imperfecta: 6. Post-traumatic stress disorder, chronic: 7. Restless legs: Plan: COPD exacerbation - Continue Solu-Medrol 40 mg IV every 8 hours - Continue doxycycline Fluid overload, bilateral pulmonary edema, diastolic CHF - Lasix 40 mg IV Lovenox for DVT prophylaxis PDMP PDMP Reviewed: Last Reviewed 04/05/25 08:33 by Jose Martin Bueno MD Attestations 2 Medical Necessity Statement*: Patient requires hospitalization for COPD exacerbation, fluid overload Diagnoses SOB (shortness of breath) R06.02 COPD (chronic obstructive pulmonary disease) J44.9 Edema of both lower legs due to peripheral venous insufficiency I87.2; R60.0 Lumbar foraminal stenosis M48.061 Osteogenesis imperfecta Q78.0 Post-traumatic stress disorder, chronic F43.12 Restless legs G25.81
[2025-04-05] MEDS: heparin 5,000 unit/mL INJ 1 mL 5000 UNIT SUBCUT (14:47)
[2025-04-05] MEDS: FUROsemide 10 mg/mL SDV 4mL 40 MG IVP (14:57)
[2025-04-06] VITALS (10 sets, daily range): BP systolic 139–143; BP diastolic 60–77; PULSE 74–104; RESP 16–35; TEMP 36.5–36.7; O2SAT 88–93; BMI 30.9
[2025-04-06] MEDS: heparin 5,000 unit/mL INJ 1 mL 5000 UNIT SUBCUT ×2 (01:56→16:32)
[2025-04-06] MEDS: methylPREDNISolone sod succ 40 mg/mL INJ IVP ×4 (01:56→23:53)
[2025-04-06] MEDS: ferrous sulfate EC 325 mg Tablet PO (04:57)
[2025-04-06] MEDS: multivitamin therapeutic Tablet 1 TAB PO (04:57)
--- NOTE | 2025-04-06 07:15 | PC.SOCIAL ---
IMM Update pg 2 of IMM updated and reviewed w/ patient. Copy provided and copy dated, initialed and placed in chart.
[2025-04-06 09:22] LABS: Anion Gap 18.9 (5-19); Blood Urea Nitrogen 24 mg/dL (8-23); Calcium 9.4 mg/dL (8.5-10.5); Carbon Dioxide 25 mmol/L (22-29); Chloride 98 mmol/L (98-107); Creatinine Clr Calc Pharmacy 59.8000; Glucose 282 mg/dL (65-115); Osmolality Calculated 300 mOsm/kg (285-295); Potassium 3.9 mmol/L (3.5-5.1); Sodium 138 mmol/L (136-145)
[2025-04-06] MEDS: FUROsemide 10 mg/mL SDV 4mL 40 MG IVP (10:31)
--- NOTE | 2025-04-06 13:28 | P.PN_ITS ---
Subjective 2 Subjective: Patient was seen this morning, currently alert oriented x 3, following commands, does report persistent shortness of breath, lower extremity edema Vitals/I&O/Wt Last Vital Signs Temp 98.1 F 04/06/25 08:00 Pulse 104 H 04/06/25 12:00 Resp 35 H 04/06/25 12:00 BP 139/69 04/06/25 12:00 Pulse Ox 88 L 04/06/25 12:00 O2 Del Method Nasal Cannula 04/06/25 07:38 O2 Flow Rate 3 04/06/25 07:38 04/05/25 04/06/25 04/06/25 22:59 06:59 14:59 Intake Total 480 / 1200 360 / 360 Output Total 625 / 625 0 / 625 Balance -145 / 575 0 / 575 360 / 360 Weight last 48 hrs Weight 79.1 kg Weight 77.746 kg Weight 78.075 kg Weight 70.307 kg Physical Exam 2 Const: COMMON NORMALS: no acute distress and patient oriented x3 Resp: COMMON NORMALS: normal respiratory effort, No retractions, No use of accessory muscles and clear to auscultation bilaterally AUSCULTATION: clear to auscultation bilaterally Cardio: COMMON NORMALS: regular rate, regular rhythm, S1 normal heart sound present and S2 normal heart sound present RATE: regular rate RHYTHM: r egular rhythm HEART SOUNDS: S1 normal heart sound present and S2 normal heart sound present GI: COMMON NORMALS: Normal to inspection, nondistended, normoactive bowel sounds present and non-tender Extremity: COMMON NORMALS: no pedal edema Neuro: COMMON NORMALS: patient oriented x3 Psych: COMMON NORMALS: mental status grossly normal Data 04/04/25 19:19 04/06/25 08:59 Micro: Microbiology 04/04/25 19:27 Blood Culture - Preliminary Blood NEGATIVE TO DATE 04/04/25 19:19 Blood Culture - Preliminary Blood NEGATIVE TO DATE A&P Assessment and plan 1. SOB (shortness of breath): 2. COPD (chronic obstructive pulmonary disease): 3. 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 Lumbar foraminal stenosis: 5. Osteogenesis imperfecta: 6. Post-traumatic stress disorder, chronic: 7. Restless legs: Plan: COPD exacerbation CT/CT angio chest PE protcl [id number] IMPRESSION: 1. No pulmonary artery embolism identified. 2. No acute aortic injury identified. Chronic moderate distension of the ascending aorta 4.3 cm diameter. 3. Generalized hepatic steatosis. 4. Moderate burden of colonic stool insofar as the colon is visualized within the field of view. 5. Dorsal thoracic kyphosis, chronic gibbus deformity accounted for by localized anterior wedge vertebral chronic compression fracture deformity centered at the T7 level in the setting of severe osteopenia. 6. No acute displaced fracture with an intermediate degree of confidence in the setting of significant osteopenia. - Continue Solu-Medrol 40 mg IV every 8 hours - Continue doxycycline Fluid overload, bilateral pulmonary edema, diastolic CHF CONCLUSIONS LV systolic function is normal with EF of 60-65% Grade 1 diastolic dysfunction Mild aortic regurgitation Ascending aorta is dilated with diameter of 4.38 c - Lasix 40 mg IV daily Lovenox for DVT prophylaxis PDMP PDMP Reviewed: Last Reviewed 04/05/25 08:33 by Jose Martin Bueno MD Attestations 2 Medical Necessity Statement*: Patient requires hospitalization for fluid overload, diastolic CHF, COPD Diagnoses SOB (shortness of breath) R06.02 COPD (chronic obstructive pulmonary disease) J44.9 Edema of both lower legs due to peripheral venous insufficiency I87.2; R60.0 Lumbar foraminal stenosis M48.061 Osteogenesis imperfecta Q78.0 Post-traumatic stress disorder, chronic F43.12 Restless legs G25.81
[2025-04-07] VITALS (12 sets, daily range): BP systolic 139–150; BP diastolic 57–79; PULSE 66–85; RESP 16–22; TEMP 36.3–36.9; O2SAT 91–95
[2025-04-07] MEDS: heparin 5,000 unit/mL INJ 1 mL 5000 UNIT SUBCUT ×2 (02:48→15:08)
[2025-04-07 03:04] LABS: Hematocrit 38.3 % (37-53); Hemoglobin 12.20 g/dL (11.27-16.99); Mean Corpuscular HGB Conc 31.9 g/dL (30-55); Mean Corpuscular Hemoglobin 30.2 pg (27-33); Mean Corpuscular Volume 94.8 fl (82-101); Nucleated Red Blood Cells % 0 %; Platelet Count 212 10^3/cmm (157-399); Red Blood Count 4.04 10^6/uL (3.85-5.65); White Blood Count 9.17 10^3/uL (3.29-11.43)
[2025-04-07 03:35] LABS: Blood Urea Nitrogen 32 mg/dL (8-23); Calcium 9.1 mg/dL (8.5-10.5); Carbon Dioxide 30 mmol/L (22-29); Chloride 99 mmol/L (98-107); Creatinine Clr Calc Pharmacy 59.8000; Glucose 118 mg/dL (65-115); NT Pro B Type Natriuretic Pept 673 pg/mL (0-125); Osmolality Calculated 296 mOsm/kg (285-295); Sodium 139 mmol/L (136-145)
[2025-04-07 03:37] LABS: Anion Gap 14.5 (5-19); Potassium 4.5 mmol/L (3.5-5.1)
[2025-04-07] MEDS: ferrous sulfate EC 325 mg Tablet PO (05:01)
[2025-04-07] MEDS: multivitamin therapeutic Tablet 1 TAB PO (05:02)
[2025-04-07] MEDS: methylPREDNISolone sod succ 40 mg/mL INJ IVP (07:53)
[2025-04-07] MEDS: FUROsemide 10 mg/mL SDV 4mL 40 MG IVP ×2 (08:38→17:08)
[2025-04-07] MEDS: HYDROcodone-acetaminophen 10-325 mg Tablet 1 TAB PO ×2 (09:25→23:14)
--- NOTE | 2025-04-07 12:11 | P.PN_ITS ---
Subjective 2 Subjective: Patient was seen this morning, continues to have swelling of bilateral extremities, does report shortness of breath, shortness of breath with exertion, no cough, no fevers, no chills Vitals/I&O/Wt Last Vital Signs Temp 98.5 F 04/07/25 09:17 Pulse 70 04/07/25 07:59 Resp 20 H 04/07/25 07:59 BP 139/57 04/07/25 07:59 Pulse Ox 93 04/07/25 07:59 O2 Del Method Nasal Cannula 04/07/25 07:59 O2 Flow Rate 3 04/07/25 07:59 04/06/25 04/07/25 04/07/25 22:59 06:59 14:59 Intake Total 960 / 1680 480 / 2160 580 / 580 Output Total 500 / 1200 800 / 2000 875 / 875 Balance 460 / 480 -320 / 160 -295 / -295 Weight last 48 hrs Weight 80 kg Weight 79.1 kg Physical Exam 2 Const: COMMON NORMALS: no acute distress and patient oriented x3 Resp: COMMON NORMALS: normal respiratory effort, No retractions and No use of accessory muscles AUSCULTATION: crackles and wheezes Cardio: COMMON NORMALS: regular rate, regular rhythm, S1 normal heart sound present and S2 normal heart sound present RATE: regular rate RHYTHM: r egular rhythm HEART SOUNDS: S1 normal heart sound present and S2 normal heart sound present GI: COMMON NORMALS: Normal to inspection, nondistended, normoactive bowel sounds present and non-tender Extremity: OTHER: 2+ edema Neuro: COMMON NORMALS: patient oriented x3 Psych: COMMON NORMALS: mental status grossly normal Data 04/07/25 02:28 04/07/25 02:28 A&P Assessment and plan 1. SOB (shortness of breath): 2. COPD (chronic obstructive pulmonary disease): 3. 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 Lumbar foraminal stenosis: 5. Osteogenesis imperfecta: 6. Post-traumatic stress disorder, chronic: 7. Restless legs: Plan: COPD exacerbation CT/CT angio chest PE protcl [id number] IMPRESSION: 1. No pulmonary artery embolism identified. 2. No acute aortic injury identified. Chronic moderate distension of the ascending aorta 4.3 cm diameter. 3. Generalized hepatic steatosis. 4. Moderate burden of colonic stool insofar as the colon is visualized within the field of view. 5. Dorsal thoracic kyphosis, chronic gibbus deformity accounted for by localized anterior wedge vertebral chronic compression fracture deformity centered at the T7 level in the setting of severe osteopenia. 6. No acute displaced fracture with an intermediate degree of confidence in the setting of significant osteopenia. - Continue Solu-Medrol 40 mg IV every 8 hours, de-escalate to prednisone 40 mg daily - Continue doxycycline Fluid overload, bilateral pulmonary edema, diastolic CHF CONCLUSIONS LV systolic function is normal with EF of 60-65% Grade 1 diastolic dysfunction Mild aortic regurgitation Ascending aorta is dilated with diameter of 4.38 c - Lasix 40 mg IV twice daily with metolazone Lovenox for DVT prophylaxis PDMP PDMP Reviewed: Last Reviewed 04/05/25 08:33 by Jose Martin Bueno MD Attestations 2 Medical Necessity Statement*: Patient requires hospitalization for fluid overload, diastolic CHF Diagnoses SOB (shortness of breath) R06.02 COPD (chronic obstructive pulmonary disease) J44.9 Edema of both lower legs due to peripheral venous insufficiency I87.2; R60.0 Lumbar foraminal stenosis M48.061 Osteogenesis imperfecta Q78.0 Post-traumatic stress disorder, chronic F43.12 Restless legs G25.81
--- NOTE | 2025-04-07 12:40 | PC.NURSE ---
Provider contacted about patient, can he have something for sleep tonight? He hasn't really slept good since he has been here. He told me he doesn't sleep great at home either but he looks exhausted. Provider entered order.
[2025-04-08] VITALS (7 sets, daily range): BP systolic 130–160; BP diastolic 50–81; PULSE 56–88; RESP 16–18; TEMP 36.5–36.7; O2SAT 90–94
[2025-04-08] MEDS: heparin 5,000 unit/mL INJ 1 mL 5000 UNIT SUBCUT (02:13)
[2025-04-08] MEDS: ferrous sulfate EC 325 mg Tablet PO (04:36)
[2025-04-08] MEDS: multivitamin therapeutic Tablet 1 TAB PO (04:38)
[2025-04-08 04:41] LABS: Hematocrit 37.7 % (37-53); Hemoglobin 12.50 g/dL (11.27-16.99); Mean Corpuscular HGB Conc 33.2 g/dL (30-55); Mean Corpuscular Hemoglobin 30.8 pg (27-33); Mean Corpuscular Volume 92.9 fl (82-101); Nucleated Red Blood Cells % 0 %; Platelet Count 203 10^3/cmm (157-399); Red Blood Count 4.06 10^6/uL (3.85-5.65); White Blood Count 8.88 10^3/uL (3.29-11.43)
[2025-04-08 05:07] LABS: Blood Urea Nitrogen 35 mg/dL (8-23); Calcium 8.4 mg/dL (8.5-10.5); Carbon Dioxide 31 mmol/L (22-29); Chloride 95 mmol/L (98-107); Creatinine Clr Calc Pharmacy 60.1273; Glucose 91 mg/dL (65-115); NT Pro B Type Natriuretic Pept 839 pg/mL (0-125); Osmolality Calculated 294 mOsm/kg (285-295); Sodium 138 mmol/L (136-145)
[2025-04-08 05:15] LABS: Anion Gap 16.2 (5-19); Potassium 4.2 mmol/L (3.5-5.1)
--- NOTE | 2025-04-08 09:02 | PC.SOCIAL ---
IMM Updated Updated pt on IMM. No questions voiced. Provided pt a copy. Initialed, dated, & timed copy in chart.
[2025-04-08] MEDS: FUROsemide 10 mg/mL SDV 4mL 40 MG IVP (09:21)
--- NOTE | 2025-04-08 10:39 | PM.DCS ---
Discharge Providers Date of Admission: 04/04/25 23:00 Date of Discharge: April 08, 2025 Attending Provider at Admission: Cassie Black MD Attending Provider at Discharge: Jose Martin Bueno MD Primary Care Provider: Radha Bright MD Diagnoses at Discharge Discharge Diagnosis 1. SOB (shortness of breath): 2. Pulmonary emphysema, unspecified emphysema type: 3. 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 Lumbar foraminal stenosis: 5. Osteogenesis imperfecta: 6. Post-traumatic stress disorder, chronic: 7. Restless legs: Reason for Visit Reason for Visit: resp distress Hospital Course Hospital Course This is a 69-year-old male with a past medical history of major depressive disorder, COPD, hypertension Patient presented to [facility] for COPD exacerbation, received IV steroids, oral doxycycline, overall clinically proved, discharged on prednisone burst, and doxycycline For fluid overload, diastolic CHF, received IV diuresis, diuresed over -6.7 L, discharge with oral Lasix with close follow-up with primary care provider Physical Exam Const: COMMON NORMALS: no acute distress and patient oriented x3 Resp: COMMON NORMALS: normal respiratory effort, No retractions, No use of accessory muscles and clear to auscultation bilaterally AUSCULTATION: clear to auscultation bilaterally Cardio: COMMON NORMALS: regular rate, regular rhythm, S1 normal heart sound present and S2 normal heart sound present RATE: regular rate RHYTHM: regular rhythm HEART SOUNDS: S1 normal heart sound present and S2 normal heart sound present GI: COMMON NORMALS: Normal to inspection, nondistended, normoactive bowel sounds present and non-tender Extremity: COMMON NORMALS: no calf tenderness and no pedal edema Neuro: COMMON NORMALS: patient oriented x3 Psych: COMMON NORMALS: mental status grossly normal Discharge Data Studies Completed and Pending Completed Studies During Hospitalization Category Date Time Status CT angio chest PE protcl [id number] Stat Cat Scan 04/04/25 20:29 Completed XR chest 1V portable [id number] Stat Exams 04/04/25 18:30 [place] [id number] Routine Ultrasound 04/05/25 01:52 Completed CV. echo complete* [id number] Routine Ultrasound 04/05/25 01:52 Completed Pending at discharge Category Date Time Status Basic Metabolic Panel AM LABS Lab 04/09/25 04:00 Ordered Blood Culture Stat Lab 04/04/25 19:27 Results Complete Blood Count w/Auto AM LABS Lab 04/09/25 04:00 Ordered NT Pro B Type Natriuretic Pept QAM Lab 04/09/25 06:00 Ordered Radiology Impressions Chest X-Ray 04/04/25 18:30 IMPRESSION: 1. No acute cardiopulmonary disease or adverse interval change radiographically. 2. No acute displaced fracture with an intermediate degree of confidence in the setting of significant osteopenia. 3. Generalized advanced skeletal chronic degenerative and other nonacute findings as described above. 4. Lung interstitial prominence without focal consolidation. COMMENTS: 1. If symptoms persist or worsen, consider repeat imaging with a fiducial at the troublesome clinical area of concern or a follow-up study in 7-10 days. 2. Qualitative demineralization of bones (osteopenia) limiting evaluation for nondisplaced fractures. Chest CTA 04/04/25 20:29 IMPRESSION: 1. No pulmonary artery embolism identified. 2. No acute aortic injury identified. Chronic moderate distension of the ascending aorta 4.3 cm diameter. 3. Generalized hepatic steatosis. 4. Moderate burden of colonic stool insofar as the colon is visualized within the field of view. 5. Dorsal thoracic kyphosis, chronic gibbus deformity accounted for by localized anterior wedge vertebral chronic compression fracture deformity centered at the T7 level in the setting of severe osteopenia. 6. No acute displaced fracture with an intermediate degree of confidence in the setting of significant osteopenia. COMMENTS: 1. If symptoms persist or worsen, consider repeat imaging with fiducial at troublesome clinical area of concern or follow-up study in 7-10 days. 2. Qualitative demineralization of bones (osteopenia) limiting evaluation for nondisplaced fractures. 3. The presence of pulmonary emphysema on CT is an independent risk factor for lung cancer. In the absence of a history or active diagnosis of lung cancer, it is recommended that this patient with emphysema be evaluated for enrollment in a low dose CT lung cancer screening program. Laboratory Results WBC 8.88 10^3/uL (3.29-11.43) 04/08/25 04:09 RBC 4.06 10^6/uL (3.85-5.65) 04/08/25 04:09 Hgb 12.50 g/dL (11.27-16.99) 04/08/25 04:09 Hct 37.7 % (37-53) 04/08/25 04:09 MCV 92.9 fl (82-101) 04/08/25 04:09 MCH 30.8 pg (27-33) 04/08/25 04:09 MCHC 33.2 g/dL (30-55) 04/08/25 04:09 RDW 13.9 % (12.1-15.1) 04/08/25 04:09 Plt Count 203 10^3/cmm (157-399) 04/08/25 04:09 MPV 10.2 fL (7.4-10.4) 04/08/25 04:09 Neut % (Auto) 64.4 % 04/08/25 04:09 Lymph % (Auto) 26.7 % 04/08/25 04:09 Sargent % (Auto) 8.1 % 04/08/25 04:09 Eos % (Auto) 0.0 % 04/08/25 04:09 Baso % (Auto) 0.1 % 04/08/25 04:09 Neut # (Auto) 5.72 10^3/uL (1.8-7.7) 04/08/25 04:09 Lymph # (Auto) 2.4 10^3/uL (0.8-4.8) 04/08/25 04:09 [place]argent # (Auto) 0.7 10^3/uL (0.2-0.9) 04/08/25 04:09 Eos # (Auto) 0.0 10^3/uL (0.0-0.8) 04/08/25 04:09 Baso # (Auto) 0.0 10^3/uL (0.0-0.1) 04/08/25 04:09 Nucleated RBC % (auto) 0 % 04/08/25 04:09 Nucleated RBCs # 0.0 /100WBC 04/08/25 04:09 Specimen Type Arterial 04/04/25 19:24 Sample Site Radial, left 04/04/25 19:24 ABG pH 7.44 (7.35-7.45) 04/04/25 19:24 ABG pCO2 40.7 mmHg (35-45) 04/04/25 19:24 ABG pO2 70.1 mmHg (80.0-100.0) L 04/04/25 19:24 ABG PO2/FiO2 Ratio 219 04/04/25 19:24 ABG HCO3 27.3 mmol/L (22-26) H 04/04/25 19:24 ABG O2 Saturation 95.8 04/04/25 19:24 ABG Base Excess 2.8 mmol/L (-2.0-2.0) H 04/04/25 19:24 Fawad Test Pos 04/04/25 19:24 A-a O2 Gradient 14.1 mmHg (5-10) H 04/04/25 19:24 Hematocrit 43.1 % (42-52) 04/04/25 19:24 Hgb O2 Saturation 94.2 % (95-100) L 04/04/25 19:24 Carboxyhemoglobin 1.5 %THgb (0.4-20.1) 04/04/25 19:24 Methemoglobin 0.1 % (0.4-1.5) L 04/04/25 19:24 Total Hemoglobin 14.1 g/dL (14-18) 04/04/25 19:24 Sodium 142.0 mmol/L (131-143) 04/04/25 19:24 Potassium 3.8 mmol/L (3.5-5.0) 04/04/25 19:24 Glucose 116.0 mg/dL (70-115) H 04/04/25 19:24 Ionized Calcium 1.2 mmol/L (1.1-1.4) 04/04/25 19:24 O2 Delivery Device Nc 04/04/25 19:24 O2 Liters/Min 3.0 % 04/04/25 19:24 FiO2 32.0 % 04/04/25 19:24 Stone Product [employer]ator ID [email or web address] 04/04/25 19:24 Sodium 138 mmol/L (136-145) 04/08/25 04:09 Potassium 4.2 mmol/L (3.5-5.1) 04/08/25 04:09 Chloride 95 mmol/L (98-107) L 04/08/25 04:09 Carbon Dioxide 31 mmol/L (22-29) H 04/08/25 04:09 Anion Gap 16.2 (5-19) 04/08/25 04:09 BUN 35 mg/dL (8-23) H 04/08/25 04:09 Creatinine 1.1 mg/dL (0.7-1.2) 04/08/25 04:09 GFR Calculation 66.6 mL/min (90-130) L 04/08/25 04:09 Glucose 91 mg/dL (65-115) 04/08/25 04:09 Calculated Osmolality 294 mOsm/kg (285-295) 04/08/25 04:09 Lactic Acid 2.1 mmol/L (0.5-2.2) 04/04/25 19:19 Lactic Acid (Sepsis) 2.1 mmol/L (0.5-2.2) 04/04/25 22:37 Calcium 8.4 mg/dL (8.5-10.5) L 04/08/25 04:09 Total Bilirubin 0.4 mg/dL (0.15-1.2) 04/04/25 19:19 AST 28 U/L (0-40) 04/04/25 19:19 ALT 19 U/L (0-41) 04/04/25 19:19 Alkaline Phosphatase 64 U/L (40-130) 04/04/25 19:19 Troponin T Baseline 27 ng/L (0-15) H 04/04/25 19:19 Troponin T 120 Minute 20.34 ng/L (0-15) H 04/04/25 21:23 Delta Troponin T -6.66 ABS# (0-10) L 04/04/25 21:23 Troponin T Hi Sens 6Hr 23.48 ng/L (0-15) H 04/05/25 01:23 Troponin T Hi Sens 6Hr Delta -3.52 ng/L (0-12) L 04/05/25 01:23 C-Reactive Protein 9.3 mg/L (0.0-4.9) H 04/04/25 19:19 NT-Pro-B Natriuret Pep 839 pg/mL (0-125) H 04/08/25 04:09 Total Protein 7.3 g/dL (6.6-8.7) 04/04/25 19:19 Albumin 4.4 g/dL (3.5-5.2) 04/04/25 19:19 Globulin 2.9 g/dL (1.3-4.6) 04/04/25 19:19 TSH 0.56 uIU/mL (0.27-4.20) 04/05/25 01:23 Urine Color Yellow (Yellow) 04/04/25 19:24 Urine Appearance Clear (CLEAR) 04/04/25 19:24 Urine pH 7.0 (5-7) 04/04/25 19:24 Ur Specific [place] 1.006 (1.005-1.030) 04/04/25 19:24 Urine Protein Negative (Negative) 04/04/25 19:24 Urine Glucose (UA) Negative (Normal) 04/04/25 19:24 Urine Ketones Negative (Negative) 04/04/25 19:24 Urine Blood Negative (Negative) 04/04/25 19:24 Urine Nitrate Negative (Negative) 04/04/25 19:24 Urine Bilirubin Negative (Negative) 04/04/25 19:24 Urine Urobilinogen 0.2 mg/dL (Negative) 04/04/25 19:24 Ur Leukocyte Esterase Negative (Negative) 04/04/25 19:24 Urine RBC 0-2 /hpf (0-2) 04/04/25 19:24 Urine WBC None /hpf (0-5) 04/04/25 19:24 Ur Squamous Epith Cells 0-4 /hpf (0-5) H 04/04/25 19:24 Amorphous Sediment Not Reportable 04/04/25 19:24 Urine Bacteria None /hpf (NONE) 04/04/25 19:24 Influenza A (PCR) Negative (Negative) 04/04/25 19:24 Influenza Type B (PCR) Negative (Negative) 04/04/25 19:24 RSV (PCR) Negative (Negative) 04/04/25 19:24 SARS-CoV-2 (PCR) Negative (Negative) 04/04/25 19:24 Vitals Last Vital Signs Temp 97.7 F 04/08/25 07:31 Pulse 64 04/08/25 07:40 Resp 18 04/08/25 07:31 BP 134/58 04/08/25 07:31 Pulse Ox 91 04/08/25 07:40 O2 Del Method Room Air 04/08/25 07:40 O2 Flow Rate 3 04/07/25 23:50 Discharge Plan Discharge Patient Disposition: Home Condition: Stable Prescriptions: New doxycycline hyclate 100 mg capsule 100 mg PO BID 7 Days Qty: 14 0RF prednisone 20 mg Tablet 40 mg PO DAILY 5 Days Qty: 10 0RF furosemide [Lasix] 20 mg tablet 20 mg PO DAILY 30 Days Qty: 30 0RF potassium chloride [Klor-Con 10] 10 mEq tablet extended release 10 meq PO DAILY 30 Days Qty: 30 0RF Continued multivitamin Tablet 1 tab PO QAM Senna Plus 8.6-50 mg capsule 3 tab-cap PO BID calcium carbonate [Calcium 600] 600 mg calcium (1,500 mg) tablet 600 mg PO DAILY ferrous sulfate [FeroSul] 325 mg (65 mg iron) tablet 325 mg PO DAILY magnesium 200 mg tablet 200 mg PO DAILY saw palmetto 500 mg capsule 500 mg PO DAILY hydroxyzine HCl 50 mg tablet See Rx Instructions .ROUTE .COMPLEX Qty: 30 3RF Dose Instruction: TAKE ONE TABLET BY MOUTH DAILY AT BEDTIME Rx Instructions: TAKE ONE TABLET BY MOUTH DAILY AT BEDTIME albuterol sulfate [Ventolin HFA] 90 mcg/actuation HFA aerosol inhaler 2 puff inhalation QID PRN (Reason: shortness of breath or wheezing) Qty: 8.5 3RF baclofen 10 mg tablet See Rx Instructions .ROUTE .COMPLEX Qty: 360 1RF Dose Instruction: TAKE ONE TABLET BY MOUTH FOUR TIMES DAILY Rx Instructions: TAKE ONE TABLET BY MOUTH FOUR TIMES DAILY alendronate 70 mg tablet See Rx Instructions .ROUTE .COMPLEX Qty: 4 2RF Dose Instruction: TAKE ONE TABLET BY MOUTH WEEKLY Rx Instructions: TAKE ONE TABLET BY MOUTH WEEKLY hydrocodone-acetaminophen 10-325 mg tablet 1 tab PO QID PRN (Reason: pain) 30 Days Qty: 120 0RF Discharge Order = DC NOW: Discharge Order (Routine); Ordered 04/08/25 Ordered By: Jose Martin Bueno Referrals: Shobha Henson MD [Physician, Cardiology] - 05/06/25 8:00 am Swati Wilson FNP-C [Nurse Practitioner, Family Practice] - 04/07/25 10:20 am Discharge Diet: As Directed Discharge Activity: Increase activity as tolerated Patient Instructions: COPD, Furosemide (By mouth), Doxycycline (By mouth), Prednisone (By mouth), Potassium Chloride (By mouth), Shortness of Breath (ED), COPD Stoplight, Opioid Safety, Pain Management, Patient Portal & [facility]it Instructions Activity Restrictions/Additional Instructions: Thank you for choosing [facility] for your healthcare needs today. You have been screened and evaluated and felt safe for discharge. Health conditions do change or evolve sometimes and as such it is important that you follow up with your Primary Doctor to be re checked, 3-5 days is a general good time frame for follow up. 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
== END 2025-04-08 12:16 | disposition home or self-care (01) | DRG 191 ==
LOC: ER 04-05 00:03 → ER IP 04-05 00:17 → CSU 04-05 01:51 → MEDSURG 04-07 19:22
PROVIDERS: Admitting Provider Student in an Organized Health Care Education/Training Program; Emergency Provider Emergency Medicine; PCP Family Medicine; Visit Provider Family Medicine
DX: J44.1 Chronic obstructive pulmonary disease with (acute) exacerbation (principal); I50.30 Unspecified diastolic (congestive) heart failure; Q78.0 Osteogenesis imperfecta; M48.54XA Collapsed vertebra, not elsewhere classified, thoracic region, initial encounter for fracture; R60.0 Localized edema; I87.2 Venous insufficiency (chronic) (peripheral); M48.062 Spinal stenosis, lumbar region with neurogenic claudication; F43.12 Post-traumatic stress disorder, chronic; G25.81 Restless legs syndrome; F17.210 Nicotine dependence, cigarettes, uncomplicated; J43.9 Emphysema, unspecified
CPT/HCPCS: 36415; 36600; 71045; 71275; 80048; 80051; 80053; 81001; 82330; 82805; 83605; 83880; 84443; 84484; 85025; 86140; 87040; 87637; 93005; 93306; 93970; 94640; 96365; 96372; 96375; 97110; 97161; 97165; 97530; 99285; J1644; J1938; J2919; J3490; J7512; J7614; J7644; J9999